=== PATIENT | male | born 1955 | race Hispanic/Latino ===

== ENCOUNTER 2017-06-13 09:07 | Inpatient (IN) | payer OTHER ==
--- NOTE | 2017-06-13 10:25 | C.PDOC ---
History Of Present Illness 62 year old male presents to ED for evaluation of intermittent right side facial pain for the past month, but worse in the past 3-4 days. He reports taking Tylenol and sinus decongestant without improvement. He states pain is in right cheek area and non-radiating. Denies headache, dizziness, vision change, mouth or dental pain, runny nose, fever, or injury to the area. Time Seen by Provider: 06/13/17 09:51 Chief Complaint (Nursing): Medical Clearance History Per: Patient History/Exam Limitations: no limitations Onset/Duration Of Symptoms: Days Current Symptoms Are (Timing): Still Present Recent travel outside of the [place]: No Additional History Per: Patient Past Medical History Reviewed: Historical Data, Nursing Documentation, Vital Signs Vital Signs: Last Vital Signs Temp 97.4 F L 06/13/17 09:19 Pulse 121 H 06/13/17 13:06 Resp 18 06/13/17 13:06 BP 127/77 06/13/17 13:06 Pulse Ox 96 06/13/17 13:06 - Medical History PMH: COPD, HTN Family History: States: Unknown Family Hx - Social History Hx Alcohol Use: No Hx Substance Use: No Review Of Systems Except As Marked, All Systems Reviewed And Found Negative. Constitutional: Negative for: Fever, Chills Eyes: Negative for: Vision Change ENT: Positive for: Other (right facial pain ). Negative for: Ear Pain, Nose Discharge, Nose Congestion, Throat Pain Cardiovascular: Negative for: Chest Pain, Palpitations Respiratory: Negative for: Cough, Shortness of Breath Neurological: Negative for: Headache, Dizziness Physical Exam - Physical Exam Appears: Non-toxic, No Acute Distress Skin: Normal Color, Warm, Dry Head: Atraumatic, Normacephalic, No Tenderness (no tenderness to right maxillary area), No Swelling (no facial swelling), No Other (no trismus) Eye(s): bilateral: Normal Inspection, PERRL, EOMI Nose: Normal, No Flaring, No Discharge Oral Mucosa: Moist Tongue: Normal Appearing Lips: Normal Appearing Teeth: Edentulous Throat: Normal Neck: Normal ROM, Supple Cardiovascular: Rhythm Regular, No Murmur Respiratory: Normal Breath Sounds, No Rales, No Rhonchi, No Wheezing Extremity: Normal ROM Neurological/Psych: Oriented x3, Normal Speech ED Course And Treatment - Laboratory Results Result Diagrams: 06/13/17 13:18 06/13/17 13:18 Lab Interpretation: Normal O2 Sat by Pulse Oximetry: 96 Pulse Ox Interpretation: Normal - CT Scan/US Right maxillofacial CT Other Rad Studies (CT/US): Read By Radiologist, Radiology Report Reviewed CT/US Interpretation: PROCEDURE: CT MAXILLOFACIAL BONES WITHOUT CONTRAST. HISTORY: right maxillary pain. COMPARISON: None. TECHNIQUE: Contiguous axial CT images of the maxillofacial bones were obtained. Coronal and sagittal reformats were generated. Radiation dose: Total exam DLP = 885.79 mGy-cm. This CT exam was performed using one or more of the following dose reduction techniques: Automated exposure control, adjustment of the mA and/or kV according to patient size, and/or use of iterative reconstruction technique. FINDINGS: NASAL BONES: Unremarkable. ORBITS: Unremarkable. PARANASAL SINUSES/ MASTOIDS: Right maxilla/maxillary sinus There is atelectasis of the right maxillary sinus with the inferior bowling of the right orbital wall there is severe osteoneogenesis and destruction of the medial wall of the right maxilla as well as medial aspect of the inferolateral wall of the right maxilla. The right inferior turbinate is resorbed. There are several discrete or ossific densities in the region of the anteromedial maxillary wall. There is severe polypoid mucosal thickening in the right maxillary sinus with aerosolized secretions. There is mild right facial soft tissue swelling and subcutaneous fat stranding with ill-defined edema in the right sharepoint consultant space. The right pterygopalatine fossa is obscured by abnormal soft tissue. The remaining paranasal sinuses are well developed and clear. MANDIBLE/ TEMPOROMANDIBULAR JOINTS: Unremarkable. SKULL BASE: Unremarkable. TEMPORAL BONES: Middle ears and mastoid grossly unremarkable. OTHER FINDINGS: There are multiple periapical abscesses in the maxillary teth. IMPRESSION: Findings are most compatible with right maxillary atelectatic sinus syndrome with concerns of acute and/or chronic chronic osteomyelitis in the right maxilla. Aerosolized secretions in the right maxillary sinus may represent superimposed acute sinusitis in the appropriate clinical setting. Multiple maxillary periapical dental abscesses. Medical Decision Making Medical Decision Making: Plan: * Maxillofacial CT * Motrin CT shows abnormal findings, see full report. Patient now states when he was younger around 12 years of age had sinus and polyp surgical removal. Consult DR Kohler. Dr Kohler evaluates patient at bedside. He wants patient admitted to medicine. Recommends ID consult. Also requesting further tests Bone scan and MRI. Speak with DR Grupo Cross who admits for Dr Dupree. 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 - Scribe Statement The provider has reviewed the documentation as recorded by the Scribe Isamar Cross All medical record entries made by the Scribe were at my direction and personally dictated by me. I have reviewed the chart and agree that the record accurately reflects my personal performance of the history, physical exam, medical decision making, and the department course for this patient. I have also personally directed, reviewed, and agree with the discharge instructions and disposition. Decision To Admit - Pt Status Changed To: Hospital Disposition Of: Inpatient - Admit Certification Admit to Inpatient:: After my assessment, the patient will require hospitalization for at least two midnights. This is because of the severity of symptoms shown, intensity of services needed, and/or the medical risk in this patient being treated as an outpatient. - InPatient: Physician Admission Certification: I certify that this patient requires 2 or more midnights of care for the following reason:: Patient with acute maxillary sinusitis and abnormal CT findings concerning for osteomyelitis. Patient will need admission and further testing. ENT consult - . Bed Request Type: Regular Admitting Physician: Kim Cross Patient Diagnosis: Sinusitis, acute maxillary, Abnormal CT scan, sinus
--- NOTE | 2017-06-13 11:37 | CT ---
PROCEDURE: CT MAXILLOFACIAL BONES WITHOUT CONTRAST HISTORY: right maxillary pain COMPARISON: None TECHNIQUE: Contiguous axial CT images of the maxillofacial bones were obtained. Coronal and sagittal reformats were generated. Radiation dose: Total exam DLP = 885.79 mGy-cm. This CT exam was performed using one or more of the following dose reduction techniques: Automated exposure control, adjustment of the mA and/or kV according to patient size, and/or use of iterative reconstruction technique. FINDINGS: NASAL BONES: Unremarkable. ORBITS: Unremarkable. PARANASAL SINUSES/ MASTOIDS: Right maxilla/maxillary sinus There is atelectasis of the right maxillary sinus with the inferior bowling of the right orbital wall there is severe osteoneogenesis and destruction of the medial wall of the right maxilla as well as medial aspect of the inferolateral wall of the right maxilla. The right inferior turbinate is resorbed. There are several discrete or ossific densities in the region of the anteromedial maxillary wall. There is severe polypoid mucosal thickening in the right maxillary sinus with aerosolized secretions. There is mild right facial soft tissue swelling and subcutaneous fat stranding with ill-defined edema in the right carbon rod inserter space. The right pterygopalatine fossa is obscured by abnormal soft tissue. The remaining paranasal sinuses are well developed and clear. MANDIBLE/ TEMPOROMANDIBULAR JOINTS: Unremarkable. SKULL BASE: Unremarkable. TEMPORAL BONES: Middle ears and mastoid grossly unremarkable. OTHER FINDINGS: There are multiple periapical abscesses in the maxillary teth. IMPRESSION: Findings are most compatible with right maxillary atelectatic sinus syndrome with concerns of acute and/or chronic chronic osteomyelitis in the right maxilla. Aerosolized secretions in the right maxillary sinus may represent superimposed acute sinusitis in the appropriate clinical setting. Multiple maxillary periapical dental abscesses.
[2017-06-13] MEDS ORDERED: cefTRIAXone IV 1 gm in Dextros 50 ML IV ONE (13:06)
[2017-06-13 13:28] LABS: BASO # 0.1 K/uL (0.0-0.2); EOS % 0.5 % (0.0-4.0); HEMATOCRIT 43.3 % (35.0-51.0); LYMPH # 2.1 K/uL (1.0-4.3); LYMPH % 27.4 % (20.0-40.0); MEAN CELL VOLUME 88.1 fL (80.0-94.0); MEAN CORPUSCULAR HEMOGLOBIN 29.6 pg (27.0-31.0); MEAN CORPUSCULAR HGB CONC 33.5 g/dL (33.0-37.0); MEAN PLATELET VOLUME 8.9 fL (7.2-11.7); MONO # 0.4 K/uL (0.0-0.8); MONO % 5.5 % (0.0-10.0); NRBC % 0.1 % (0.0-2.0); RED CELL DISTRIBUTION WIDTH 15.4 % (11.5-14.5); WHITE BLOOD COUNT 7.8 K/uL (4.8-10.8)
[2017-06-13 13:37] LABS: INR 1.3
[2017-06-13 13:42] LABS: ALB/GLOB RATIO 1.1 (1.0-2.1); ALKALINE PHOSPHATASE 88 U/L (38-126); ALT/SGPT 57 U/L (21-72); AST/SGOT 63 U/L (17-59); BILIRUBIN,TOTAL 0.6 mg/dL (0.2-1.3); BLOOD UREA NITROGEN 13 mg/dL (9-20); CALCIUM 8.5 mg/dl (8.6-10.4); CARBON DIOXIDE 25 mmol/L (22-30); CHLORIDE 101 mmol/L (98-107); GFR AFRICAN-AMERICAN > 60; GLUCOSE,RANDOM 122 mg/dL (75-110); POTASSIUM 3.9 mmol/L (3.6-5.2); SODIUM 140 mmol/L (132-148); TOTAL PROTEIN 7.2 g/dL (6.3-8.3)
[2017-06-13 15:22] LABS: ABG ALLEN TEST PO; DRAW SITE RRA
[2017-06-13] MEDS ORDERED: Oxycodone/Acetaminophen 5/325 mg Tab PO ONE (15:31)
--- NOTE | 2017-06-13 15:35 | PCM.RRT ---
Addendum entered and electronically signed by Zahida Zapata DO 06/13/17 15:39: venous congestion and left sided pleural thickening/fluid f/u ddimer f/u ctangio chest IV lasix 40mg IVP once Original Note: <Zahida Zapata - Last Filed: 06/13/17 15:33> GOLD STAMPER Nurses Assessment - Situation Date: 06/13/17 GOLD STAMPER Location:: Med/Oncology GOLD STAMPER Reason for Call: Tachycardia GOLD STAMPER Called By: RN - IV IV Inserted during GOLD STAMPER?: No - Respiratory GOLD STAMPER Delivery Method: Nasal Cannula @L/min Received Nebulizer Treatments: No Was the Patient Ventilated with Bag/Mask 100% O2?: No Secretions Suctioned?: No Was the Patient Intubated?: No Was the Patient Placed on a Ventilator?: No - Diagnostic Test Ordered EKG: Yes Chest X-Ray: Yes CT Scan: Yes (ctangiogram) - Stat Labs Ordered GOLD STAMPER Stat Labs Ordered: TROPONIN, LACTIC ACID, ABG CPR started during GOLD STAMPER?: No - [place] Coma Scale Coma Scale Eye Opening: Spontaneous Coma Scale Motor: Obeys Commands Movement Coma Scale Verbal: Oriented Coma Scale Total: 15 - Vital Signs at end of GOLD STAMPER Vital Signs at end of GOLD STAMPER: hr 122 bp 155 systolic please see vitals recorded in vital signs - Recommendations 5) GOLD STAMPER Level of Care Recommendations: Transfer to Telemetry - Neurological Status (Select all that apply): Alert - Respiratory Oxygen Delivery Method: Nasal Cannula @L/min - Head Head Exam: ATRAUMATIC, NORMAL INSPECTION, NORMOCEPHALIC - Eyes Eye Exam: EOMI, Normal appearance - Respiratory Exam Respiratory Exam: Decreased Breath Sounds, NORMAL BREATHING PATTERN - Cardiovascular Exam Cardiovascular Exam: Tachycardia, REGULAR RHYTHM, +S1, +S2 - GI/Abdominal Exam GI & Abdominal Exam: Soft. absent: Tenderness - Neurological Exam Neurological Exam: Alert, Awake, Oriented x3 - Extremities Exam Extremities Exam: Full ROM, Pedal Edema (1+ pitting edema) Plan - Assessment of Findings&Treatment Plan f/u TSH, free t4 f/u [place] panel ABG shock seen lactate 0.8 f/u blood culture f/u urine culture f/u UA CXR done, cardiomegaly, some pleural effusion <Zoila Del Rio V - Last Filed: 06/14/17 00:24> GOLD STAMPER Nurses Assessment - Vital Signs Vital Signs: Rapid Response Vital Sign Blood Pressure 155/90 Pulse Rate 125 Respiratory Rate 21 Temperature 98 F Oxygen Saturation 95 - Vital Signs at end of GOLD STAMPER Vital Signs at end of GOLD STAMPER: Rapid Response End Vital Sign Blood Pressure 156/102 Pulse Rate 124 Respiratory Rate 21 Temperature 97.7 F O2 Sat by Pulse Oximetry 96 Attending/Attestation - Attestation I have personally seen and examined this patient.: Yes I have fully participated in the care of the patient.: Yes I have reviewed all pertinent clinical information, including history, physical exam and plan: Yes Notes (Text): Brief Hospitalist Note Responded to GOLD STAMPER for tachycardia. Patient recently came up from the ED for sinusitis when arrived to the 3rd floor which is a med/surgery floor. Patient's H&P not available at the time of my exam. Nurse called GOLD STAMPER for HR: 120s. This is the history I elicited from the patient. patient is a 62 year old Male PMHX: COPD (not on home oxygen, has not seen a seam sewer, smoker: 1/2 pack a day for multiple years), CHF (prior hx of exacerbation), prior history of pneumonia who comes in for right sided maxillary facial pain, which prompted him to come to the emergency room. Patient reports he spends most of the time in bed 5-6 hours and sometimes go to the grocery store. Patient reports he feels short of breathe and can one block before his breathing bother gilmer. Patient denies fever, afebrile in the emergency room, reports unproductive cough, reports SHINE, denies chest pain, denies palpitations, denies abdominal pain, reports abdominal girth has not changed, denies nausea, denies vomitting, and reports hesistancy, dribbling of urine, but as he reports if he drinks lots of water he will urine. PMD: Abuvicar Medications: patient cannot remember the name of his medications: reports takes anti-hypertensives 3x a day Allergies; NKDA, he reports he does not like fish, but has tolerate tuna Social Hx: +smoking, has cut to half pack a day for multiple years Family Hx: mother has triple bypass surgery. Given patient's asymptomatic tachycardia-->patient ordered for EKG which shows sinus tachycardia. Ordered for CARY, TSH, D-dimer, and proBNP given his cardiac hx. Patient is afebrile but appears to be fighting off sinusitis. Patient is not anemic per ED bloodwork on admission. Ordered for ABG given his COPD hx and check lactate to see if patient warrants code sepsis, which does not. lactate acid is normal. Blood and urine cultures ordered. Nursing attempted to put in urinary catheter at bedside however noted by nursing there is much resistance and patient screaming in pain. I suspected possible BPH but patient has never been told he has prostate problems. Patient order for portable chest xray since not collected in ED and given history and tachycardia, want to rule out pneumothorax and see if pneumonia is present. Patient ordered for Ct angio stat since given risk factor: morbid obesity, sedentary, and active smoker and tachycardia to rule out PE since d-dimer is collected during the rapid respone. Patient given dose of LAsix 40mg IV X1, and Percocet 1 tab PO X1 for pain. Patient has remained asymptomatic entire time of rapid. Patient's bed transferred to telemetry given consideration of his COPD, CHF, possible pneumonia, and fighting off infection associated osteomyelitis. Discussed with Dr Grupo Cross, following resolution of rapid given patient's extensive medical hx, recommends pulm consult (Dr. Francisco), infectious disease ( Dr. Noah Almendarez), and cardiology (Dr. Carson).
--- NOTE | 2017-06-13 15:37 | RAD ---
HISTORY: sob COMPARISON: Chest x-ray performed 10/01/12 TECHNIQUE: Chest, one view. FINDINGS: Tubing projects over the left upper chest obscuring evaluation of the underlying parenchyma. Examination markedly limited by habitus. LUNGS: Pulmonary venous congestion. No focal consolidation. Please note that chest x-ray has limited sensitivity for the detection of pulmonary masses. PLEURA: Mild right lateral pleural thickening/fluid. No definite pneumothorax . CARDIOVASCULAR: Marked cardiomegaly. Atherosclerotic calcifications of the aorta. OSSEOUS STRUCTURES: Degenerative changes. VISUALIZED UPPER ABDOMEN: Unremarkable. OTHER FINDINGS: None. IMPRESSION: Marked cardiomegaly. Pulmonary venous congestion. Mild lateral right pleural thickening/fluid.
[2017-06-13] MEDS ORDERED: Piperacillin/Tazobact 3.375 GM in Sodium Chloride 100 ML IVPB SCH (16:00)
[2017-06-13 16:23] LABS: THYROID STIMULATING HORMONE 0.39 mIU/L (0.46-4.68)
[2017-06-13] MEDS: Enoxaparin 40 mg Syringe SC SCH (16:27)
[2017-06-13] MEDS ORDERED: Iodixanol 320 MG/ML 100 ML BOTTLE IV ONE (17:28)
[2017-06-13] MEDS ORDERED: Piperacill/Tazo 3.375gm in Dex 3.375 GM/50 ML BAG IVPB SCH (18:00)
[2017-06-13 18:34] LABS: RBC URINE 1 /hpf (0-3); URINE BACTERIA RARE (<OCC); URINE BILIRUBIN NEGATIVE (NEGATIVE); URINE BLOOD NEGATIVE (NEGATIVE); URINE COLOR Yellow (YELLOW); URINE GLUCOSE (UA) NORMAL (Normal); URINE KETONE TRACE mg/dL (NEGATIVE); URINE LEUKOCYTE ESTERASE NEG Leu/uL (Negative); URINE PROTEIN NEGATIVE (NEGATIVE); URINE UROBILINOGEN NORMAL mg/dL (0.2-1.0); WBC URINE 4 /hpf (0-5)
--- NOTE | 2017-06-13 18:58 | CT ---
PROCEDURE: CT Chest with contrast (Pulmonary Angiogram) HISTORY: sob tachypnea tachycardia COMPARISON: None available. TECHNIQUE: Axial computed tomography images were obtained of the chest in the pulmonary arterial phase of enhancement. Coronal and sagittal reformatted images were created and reviewed. Intravenous contrast dose: 100 cc Visipaque 320 contrast material Radiation dose: Total exam DLP = 681.46 mGy-cm. This CT exam was performed using one or more of the following dose reduction techniques: Automated exposure control, adjustment of the mA and/or kV according to patient size, and/or use of iterative reconstruction technique. FINDINGS: PULMONARY ARTERIES: The visualized portions of the pulmonary trunk, right and left main, lobar segmental and proximal subsegmental branches of the pulmonary arteries are well opacified with no definitive filling defects seen to suggest acute pulmonary embolus. Pulmonary trunk measures approximately 2.6 cm. AORTA: No evidence of thoracic aortic aneurysm. Ascending thoracic aorta measures approximately 3.1 cm and descending thoracic aorta measures approximately 2.5 cm. LUNGS: There are vague patchy ground-glass opacities seen throughout the upper and lower lobes. Rule out air trapping. In addition, there appears to be some chronic atelectasis/ scarring in the right lung base, right middle lobe left anterior lung base -lingular regions. . Additionally, there are several tiny granulomata seen in the right middle lobe, right and posterior lung bases and in the lingular region as well. Findings consistent with prior exposure to a granulomatous disease process. Lung lim are otherwise clear without focal consolidation or effusion. Minor thickening of the posterior superior margin of the right major fissure. PLEURAL SPACES: Unremarkable. No effusion or pneumothorax. HEART: Heart size is within range of normal. No evidence of significant pericardial effusion. LYMPH NODES: No significant mediastinal or hilar adenopathy. . Central airways are midline and patent. No central endoluminal lesions. There is tiny hiatal hernia with slight wall thickening of the distal esophagus likely due to protrusion of gastric mucosa. Esophagitis not excluded. BONES, CHEST WALL: Minor chronic appearing anterior stature loss of few mid thoracic segments. OTHER FINDINGS: Apparent substernal thyroid right lobe of which is slightly larger than the left. Nonemergent thyroid ultrasound followup should be performed to confirm. IMPRESSION: No evidence of acute central pulmonary embolus. Chronic atelectasis/ scarring changes in the both lung bases middle lobe and lingular regions. Additionally, there are a few scattered tiny calcified granulomata consistent with prior exposure to granulomatous disease process. Patchy ground-glass opacities seen throughout the upper and lower lobes; rule out mild air trapping. Probable substernal thyroid. Thyroid ultrasound followup recommended to confirm.
--- NOTE | 2017-06-13 19:06 | CP.PCM.CON ---
History of Present Illness - History of Present Illness History of Present Illness: INFECTIOUS DISEASE CONSULT; HPI; 62 year old male presents to ED today for evaluation of intermittent right side facial pain for the past month, but worse in the past 3-4 days. He reports taking Tylenol and sinus decongestant without improvement. He states pain is in right cheek area and non-radiating. Denies headache, dizziness, vision change, mouth or dental pain, runny nose, fever, or injury to the area. Patient does complain of hearing loss AND FULLNESS BOTH EARS SPECIALLY RIGHT PATIENT UNDERWENT MAXILLOFACIAL CT WHICH SHOWED RIGHT MAXILLARY SINUS ATELECTASIS WITH SEVERE OSTEONECROSIS AND DESTRUCTION OF MEDIAL BORDER OF THE RIGHT MAXILLARY AND INFEROLATERAL WALL OFF RIGHT MAXILLA. MILD SOFT TISSUE SWELLING AND STRANDING WITH ILL-DEFINED EDEMA RIGHT MASTOID SPACE.? ACUTE ON CHRONIC OSTEOMYELITIS RIGHT MAXILLA. MULTIPLE MAXILLARY PERIAPICAL DENTAL ABSCESSES SEEN. PATIENT DOES STATE HE HAS POOR ORAL HYGIENE AND HAS NOT BEEN TO THE DENTIST FOR SOME TIME. MANY OF HIS TEETH HAVE FALLEN. PATIENT STATUS POST RAPID RESPONSE TODAY AND EVENTS NOTED. PATIENT PRESENTLY BEING TRANSFERRED TO THE TELEMETRY BED. CHEST X-RAY ON ADMISSION WAS UNREMARKABLE WITH SOME PERIPHERAL VASCULAR CONGESTION. INFECTIOUS DISEASE CONSULTATION REQUESTED BY DR Grupo SORIA FOR RIGHT MAXILLARY SINUSITIS ? ACUTE ON CHRONIC OSTEOMYELITIS RIGHT MAXILLA AND MULTIPLE MAXILLARY PERIAPICAL DENTAL ABSCESSES. PMH: COPD, HTN. DENIES HISTORY OF DIABETES MELLITUS. Family History: States: Unknown Family Hx - Social History Hx Alcohol Use: No Hx Substance Use: No SMOKING-USED TO SMOKE HEAVILY BUT HAS NOW CUT DOWN TO ONE PACK PER MONTH. MEDS; REVIEWED. PATIENT GOT ONE DOSE OF CEFTRIAXONE 1 G IN THE ER AND STARTED ON ZOSYN 3.375 iv EVERY 6 HOURLY. ALLERGY; NKA Review of Systems - Constitutional Constitutional: absent: Fever - EENT Eyes: absent: Change in Vision, Photophobia, Other Visual Disturbances Nose/Mouth/Throat: Nasal Congestion, Sinus Pain, Sinus Pressure, Dental Pain, Facial Pain. absent: Post Nasal Drip, Hoarsness, Sore Throat - Cardiovascular Cardiovascular: Dyspnea on Exertion. absent: Chest Pain - Respiratory Respiratory: Cough, Dyspnea, Change in Mucous Color - Gastrointestinal Gastrointestinal: absent: Abdominal Pain, Diarrhea, Vomiting - Genitourinary Genitourinary: Difficulty Urinating, Flank Pain (RIGHT FLANK PAIN.), Pyuria. absent: Urinary Hesitance - Integumentary Integumentary: As Per HPI, Dry Skin, Striae (ANTERIOR ABDOMINAL WALL.) - Neurological Neurological: Abnormal Hearing. absent: Dizziness, Headaches, Sensory Deficit, Other Visual Disturbances - Hematologic/Lymphatic Hematologic: As Per HPI. absent: Easy Bruising, Lymphadenopathy Past Patient History - Past Medical History & Family History Past Medical History?: Yes - Past Social History Smoking Status: Light Smoker < 10 Cigarettes Daily - CARDIAC Hx Congestive Heart Failure: Yes (since 2009) Hx Hypertension: Yes - PULMONARY Hx Chronic Obstructive Pulmonary Disease (COPD): Yes Hx Pneumonia: Yes (in 2009) - MUSCULOSKELETAL/RHEUMATOLOGICAL Hx Falls: No - PSYCHIATRIC Hx Substance Use: No - ANESTHESIA Hx Anesthesia: No Meds Allergies/Adverse Reactions: Allergies Allergy/AdvReac Type Severity Reaction Status Date / Time No Known Allergies Allergy Unverified 06/13/17 09:20 - Medications Medications: Current Medications Enoxaparin Sodium (Lovenox) 40 mg SC DAILY [facility] Last Admin: 06/13/17 16:27 Dose: 40 mg Furosemide (Lasix) 40 mg IVP DAILY [facility] Piperacillin Sod/Tazobactam Sod (Zosyn 3.375 Gm Iv Premix) 3.375 gm in 50 mls @ 100 mls/hr IVPB Q6 [facility] Last Admin: 06/13/17 18:57 Dose: 100 mls/hr Losartan Potassium (Cozaar) 50 mg PO DAILY [facility] Last Admin: 06/13/17 16:28 Dose: 50 mg Oxycodone/Acetaminophen (Percocet 5/325 Mg Tab) 1 tab PO Q6H PRN PRN Reason: Pain, severe (8-10) Stop: 06/16/17 16:06 Pantoprazole Sodium (Protonix Inj) 40 mg IVP DAILY [facility] Last Admin: 06/13/17 16:27 Dose: 40 mg Pneumococcal Polyvalent Vaccine (Pneumovax 23 Vaccine) 0.5 ml IM .ONCE ONE Stop: 06/15/17 10:01 Physical Exam - Constitutional Appears: No Acute Distress, Older Than Stated Age - Head Exam Head Exam: NORMAL INSPECTION - Eye Exam Eye Exam: EOMI, PERRL - ENT Exam ENT Exam: Mucous Membranes Moist, Normal Oropharynx (POOR ORAL HYGIENE. MULTIPLE TEETH MISSING.) - Neck Exam Neck exam: Positive for: Normal Inspection. Negative for: Meningismus - Respiratory Exam Respiratory Exam: Clear to Auscultation Bilateral - Cardiovascular Exam Cardiovascular Exam: Tachycardia, REGULAR RHYTHM, +S1, +S2 - GI/Abdominal Exam GI & Abdominal Exam: Normal Bowel Sounds, Soft. absent: Organomegaly - Extremities Exam Extremities exam: Positive for: pedal edema, pedal pulses present. Negative for : calf tenderness - Neurological Exam Neurological exam: Alert, CN II-XII Intact, Oriented x3, Reflexes Normal - Psychiatric Exam Psychiatric exam: Normal Mood - Skin Skin Exam: Normal Color, Warm Results - Vital Signs Recent Vital Signs: Last Vital Signs Temp 98.6 F 06/13/17 16:00 Pulse 125 H 06/13/17 18:01 Resp 21 06/13/17 18:01 BP 150/87 06/13/17 16:00 Pulse Ox 97 06/13/17 16:00 - Labs Result Diagrams: 06/13/17 13:18 06/13/17 13:18 Labs: Laboratory Results - last 24 hr 06/13/17 06/13/17 06/13/17 13:18 13:18 13:18 WBC 7.8 RBC 4.92 Hgb 14.5 Hct 43.3 MCV 88.1 MCH 29.6 MCHC 33.5 RDW 15.4 H Plt Count 327 MPV 8.9 Neut % (Auto) 65.6 Lymph % (Auto) 27.4 [place] % (Auto) 5.5 Eos % (Auto) 0.5 Baso % (Auto) 1.0 Neut # 5.1 Lymph # 2.1 [place] # 0.4 Eos # 0.0 Baso # 0.1 PT 15.2 H INR 1.3 APTT 35 H D-Dimer, Quantitative Puncture Site pCO2 pO2 HCO3 ABG pH ABG Total CO2 ABG O2 Saturation ABG Base Excess Leoncio Test ABG Potassium A-a O2 Difference Respiratory Index Glucose Lactate Liter Flow FiO2 Sodium 140 Potassium 3.9 Chloride 101 Carbon Dioxide 25 Anion Gap 17 BUN 13 Creatinine 0.8 Est GFR ( Amer) > 60 Est GFR (Non-Af Amer) > 60 POC Glucose (mg/dL) Random Glucose 122 H Calcium 8.5 L Total Bilirubin 0.6 AST 63 H ALT 57 Alkaline Phosphatase 88 Total Creatine Kinase CK-MB (Mass) Troponin I NT-Pro-B Natriuret Pep 407 Total Protein 7.2 Albumin 3.8 Globulin 3.5 Albumin/Globulin Ratio 1.1 Free T4 TSH 3rd Generation Arterial Blood Potassium Urine Color Urine Clarity Urine pH Ur Specific [place] Urine Protein Urine Glucose (UA) Urine Ketones Urine Blood Urine Nitrate Urine Bilirubin Urine Urobilinogen Ur Leukocyte Esterase Urine WBC (Auto) Urine RBC (Auto) Urine Bacteria 06/13/17 06/13/17 06/13/17 14:56 15:20 15:29 WBC RBC Hgb Hct MCV MCH MCHC RDW Plt Count MPV Neut % (Auto) Lymph % (Auto) [place] % (Auto) Eos % (Auto) Baso % (Auto) Neut # Lymph # [place] # Eos # Baso # PT INR APTT D-Dimer, Quantitative Puncture Site Rra pCO2 37 pO2 96 HCO3 24.3 ABG pH 7.41 ABG Total CO2 24.6 ABG O2 Saturation 98.1 H ABG Base Excess -0.8 Leoncio Test Po ABG Potassium 3.5 L A-a O2 Difference 57.0 Respiratory Index 0.6 Glucose 94 Lactate 0.8 Liter Flow 2.0 FiO2 28.0 Sodium 136.0 Potassium Chloride 105.0 Carbon Dioxide Anion Gap BUN Creatinine Est GFR ( Amer) Est GFR (Non-Af Amer) POC Glucose (mg/dL) 94 Random Glucose Calcium Total Bilirubin AST ALT Alkaline Phosphatase Total Creatine Kinase CK-MB (Mass) Troponin I NT-Pro-B Natriuret Pep Total Protein Albumin Globulin Albumin/Globulin Ratio Free T4 2.85 H TSH 3rd Generation Arterial Blood Potassium 3.5 L Urine Color Urine Clarity Urine pH Ur Specific [place] Urine Protein Urine Glucose (UA) Urine Ketones Urine Blood Urine Nitrate Urine Bilirubin Urine Urobilinogen Ur Leukocyte Esterase Urine WBC (Auto) Urine RBC (Auto) Urine Bacteria 06/13/17 06/13/17 06/13/17 15:29 15:29 16:56 WBC RBC Hgb Hct MCV MCH MCHC RDW Plt Count MPV Neut % (Auto) Lymph % (Auto) [place] % (Auto) Eos % (Auto) Baso % (Auto) Neut # Lymph # [place] # Eos # Baso # PT INR APTT D-Dimer, Quantitative < 200 Puncture Site pCO2 pO2 HCO3 ABG pH ABG Total CO2 ABG O2 Saturation ABG Base Excess Leoncio Test ABG Potassium A-a O2 Difference Respiratory Index Glucose Lactate Liter Flow FiO2 Sodium Potassium Chloride Carbon Dioxide Anion Gap BUN Creatinine Est GFR ( Amer) Est GFR (Non-Af Amer) POC Glucose (mg/dL) Random Glucose Calcium Total Bilirubin AST ALT Alkaline Phosphatase Total Creatine Kinase 122 CK-MB (Mass) 3.36 Troponin I < 0.0120 NT-Pro-B Natriuret Pep 376 Total Protein Albumin Globulin Albumin/Globulin Ratio Free T4 TSH 3rd Generation 0.39 L Arterial Blood Potassium Urine Color Urine Clarity Urine pH Ur Specific [place] Urine Protein Urine Glucose (UA) Urine Ketones Urine Blood Urine Nitrate Urine Bilirubin Urine Urobilinogen Ur Leukocyte Esterase Urine WBC (Auto) Urine RBC (Auto) Urine Bacteria 06/13/17 18:17 WBC RBC Hgb Hct MCV MCH MCHC RDW Plt Count MPV Neut % (Auto) Lymph % (Auto) [place] % (Auto) Eos % (Auto) Baso % (Auto) Neut # Lymph # [place] # Eos # Baso # PT INR APTT D-Dimer, Quantitative Puncture Site pCO2 pO2 HCO3 ABG pH ABG Total CO2 ABG O2 Saturation ABG Base Excess Leoncio Test ABG Potassium A-a O2 Difference Respiratory Index Glucose Lactate Liter Flow FiO2 Sodium Potassium Chloride Carbon Dioxide Anion Gap BUN Creatinine Est GFR ( Amer) Est GFR (Non-Af Amer) POC Glucose (mg/dL) Random Glucose Calcium Total Bilirubin AST ALT Alkaline Phosphatase Total Creatine Kinase CK-MB (Mass) Troponin I NT-Pro-B Natriuret Pep Total Protein Albumin Globulin Albumin/Globulin Ratio Free T4 TSH 3rd Generation Arterial Blood Potassium Urine Color Yellow Urine Clarity Clear Urine pH 5.0 Ur Specific [place] 1.026 Urine Protein Negative Urine Glucose (UA) Normal Urine Ketones Trace Urine Blood Negative Urine Nitrate Negative Urine Bilirubin Negative Urine Urobilinogen Normal Ur Leukocyte Esterase Neg Urine WBC (Auto) 4 Urine RBC (Auto) 1 Urine Bacteria Rare - Imaging and Cardiology Chest x-ray Status: Report reviewed by me (pvc. nO CONSOLIDATION.) Assessment & Plan (1) Sinusitis, acute maxillary Assessment and Plan: PANCULTURES ESR,CRP. MRSA SCREEN. THROAT CULTURE. PATIENT GOT ONE DOSE OF CEFTRIAXONE IN THE ER. INCREASE iv ZOSYN 4.5 G EVERY 8 HOURLY .06/13/17. START iv VANCOMYCIN 1 G EVERY 12 HOURLY FOR STAPH AND MRSA COVERAGE.06/13/17 START iv CLEOCIN 600 MG iv PIGGYBACK EVERY 6 HOURLY 06/13/17. F/U VANCO TROUGH LEVEL PRIOR TO FOURTH DOSE AND MAINTAIN BETWEEN 10 AND 20. ENT EVALUATION PER PMD WAS OSTEONECROSIS AND ACUTE ON CHRONIC OSTEOMYELITIS RIGHT MAXILLA. Status: Acute (2) Abnormal CT scan, sinus Assessment and Plan: MAXILLOFACIAL CT SCAN - SEE FULL REPORT. Status: Acute (3) Dental abscess Assessment and Plan: MAXILLOFACIAL SURGICAL CONSULT FOR MULTIPLE DENTAL ABSCESSES. Status: Acute (4) Hypertension Assessment and Plan: S/P RRR TODAY . CARDIOLOGY ON BOARD. 2D ECHO R/O VEGETATIONS. Status: Acute (5) Chronic obstructive lung disease Status: Acute
--- NOTE | 2017-06-13 19:38 | CP.PCM.HP ---
Past Patient History - Past Medical History & Family History Past Medical History?: Yes - Past Social History Smoking Status: Light Smoker < 10 Cigarettes Daily - CARDIAC Hx Congestive Heart Failure: Yes (since 2009) Hx Hypertension: Yes - PULMONARY Hx Chronic Obstructive Pulmonary Disease (COPD): Yes Hx Pneumonia: Yes (in 2009) - MUSCULOSKELETAL/RHEUMATOLOGICAL Hx Falls: No - PSYCHIATRIC Hx Substance Use: No - ANESTHESIA Hx Anesthesia: No Meds Allergies/Adverse Reactions: Allergies Allergy/AdvReac Type Severity Reaction Status Date / Time No Known Allergies Allergy Unverified 06/13/17 09:20 Physical Exam - Constitutional Appears: Well - Head Exam Head Exam: ATRAUMATIC, NORMAL INSPECTION, NORMOCEPHALIC - Eye Exam Eye Exam: EOMI, Normal appearance, PERRL Pupil Exam: NORMAL ACCOMODATION, PERRL - ENT Exam ENT Exam: Mucous Membranes Moist, Normal Exam - Neck Exam Neck exam: Positive for: Normal Inspection - Respiratory Exam Respiratory Exam: Decreased Breath Sounds - Cardiovascular Exam Cardiovascular Exam: REGULAR RHYTHM, +S1, +S2 - GI/Abdominal Exam GI & Abdominal Exam: Diminished Bowel Sounds, Soft - Rectal Exam Rectal Exam: Deferred Results - Vital Signs Recent Vital Signs: Last Vital Signs Temp 98.6 F 06/13/17 16:00 Pulse 125 H 06/13/17 18:01 Resp 21 06/13/17 18:01 BP 150/87 06/13/17 16:00 Pulse Ox 97 06/13/17 16:00 - Labs Result Diagrams: 06/13/17 13:18 06/13/17 13:18 Labs: Laboratory Results - last 24 hr 06/13/17 06/13/17 06/13/17 13:18 13:18 13:18 WBC 7.8 RBC 4.92 Hgb 14.5 Hct 43.3 MCV 88.1 MCH 29.6 MCHC 33.5 RDW 15.4 H Plt Count 327 MPV 8.9 Neut % (Auto) 65.6 Lymph % (Auto) 27.4 [place] % (Auto) 5.5 Eos % (Auto) 0.5 Baso % (Auto) 1.0 Neut # 5.1 Lymph # 2.1 [place] # 0.4 Eos # 0.0 Baso # 0.1 PT 15.2 H INR 1.3 APTT 35 H D-Dimer, Quantitative Puncture Site pCO2 pO2 HCO3 ABG pH ABG Total CO2 ABG O2 Saturation ABG Base Excess Leoncio Test ABG Potassium A-a O2 Difference Respiratory Index Glucose Lactate Liter Flow FiO2 Sodium 140 Potassium 3.9 Chloride 101 Carbon Dioxide 25 Anion Gap 17 BUN 13 Creatinine 0.8 Est GFR ( Amer) > 60 Est GFR (Non-Af Amer) > 60 POC Glucose (mg/dL) Random Glucose 122 H Calcium 8.5 L Total Bilirubin 0.6 AST 63 H ALT 57 Alkaline Phosphatase 88 Total Creatine Kinase CK-MB (Mass) Troponin I NT-Pro-B Natriuret Pep 407 Total Protein 7.2 Albumin 3.8 Globulin 3.5 Albumin/Globulin Ratio 1.1 Free T4 TSH 3rd Generation Arterial Blood Potassium Urine Color Urine Clarity Urine pH Ur Specific [place] Urine Protein Urine Glucose (UA) Urine Ketones Urine Blood Urine Nitrate Urine Bilirubin Urine Urobilinogen Ur Leukocyte Esterase Urine WBC (Auto) Urine RBC (Auto) Urine Bacteria 06/13/17 06/13/17 06/13/17 14:56 15:20 15:29 WBC RBC Hgb Hct MCV MCH MCHC RDW Plt Count MPV Neut % (Auto) Lymph % (Auto) [place] % (Auto) Eos % (Auto) Baso % (Auto) Neut # Lymph # [place] # Eos # Baso # PT INR APTT D-Dimer, Quantitative Puncture Site Rra pCO2 37 pO2 96 HCO3 24.3 ABG pH 7.41 ABG Total CO2 24.6 ABG O2 Saturation 98.1 H ABG Base Excess -0.8 Leoncio Test Po ABG Potassium 3.5 L A-a O2 Difference 57.0 Respiratory Index 0.6 Glucose 94 Lactate 0.8 Liter Flow 2.0 FiO2 28.0 Sodium 136.0 Potassium Chloride 105.0 Carbon Dioxide Anion Gap BUN Creatinine Est GFR ( Amer) Est GFR (Non-Af Amer) POC Glucose (mg/dL) 94 Random Glucose Calcium Total Bilirubin AST ALT Alkaline Phosphatase Total Creatine Kinase CK-MB (Mass) Troponin I NT-Pro-B Natriuret Pep Total Protein Albumin Globulin Albumin/Globulin Ratio Free T4 2.85 H TSH 3rd Generation Arterial Blood Potassium 3.5 L Urine Color Urine Clarity Urine pH Ur Specific [place] Urine Protein Urine Glucose (UA) Urine Ketones Urine Blood Urine Nitrate Urine Bilirubin Urine Urobilinogen Ur Leukocyte Esterase Urine WBC (Auto) Urine RBC (Auto) Urine Bacteria 06/13/17 06/13/17 06/13/17 15:29 15:29 16:56 WBC RBC Hgb Hct MCV MCH MCHC RDW Plt Count MPV Neut % (Auto) Lymph % (Auto) [place] % (Auto) Eos % (Auto) Baso % (Auto) Neut # Lymph # [place] # Eos # Baso # PT INR APTT D-Dimer, Quantitative < 200 Puncture Site pCO2 pO2 HCO3 ABG pH ABG Total CO2 ABG O2 Saturation ABG Base Excess Leoncio Test ABG Potassium A-a O2 Difference Respiratory Index Glucose Lactate Liter Flow FiO2 Sodium Potassium Chloride Carbon Dioxide Anion Gap BUN Creatinine Est GFR ( Amer) Est GFR (Non-Af Amer) POC Glucose (mg/dL) Random Glucose Calcium Total Bilirubin AST ALT Alkaline Phosphatase Total Creatine Kinase 122 CK-MB (Mass) 3.36 Troponin I < 0.0120 NT-Pro-B Natriuret Pep 376 Total Protein Albumin Globulin Albumin/Globulin Ratio Free T4 TSH 3rd Generation 0.39 L Arterial Blood Potassium Urine Color Urine Clarity Urine pH Ur Specific [place] Urine Protein Urine Glucose (UA) Urine Ketones Urine Blood Urine Nitrate Urine Bilirubin Urine Urobilinogen Ur Leukocyte Esterase Urine WBC (Auto) Urine RBC (Auto) Urine Bacteria 06/13/17 18:17 WBC RBC Hgb Hct MCV MCH MCHC RDW Plt Count MPV Neut % (Auto) Lymph % (Auto) [place] % (Auto) Eos % (Auto) Baso % (Auto) Neut # Lymph # [place] # Eos # Baso # PT INR APTT D-Dimer, Quantitative Puncture Site pCO2 pO2 HCO3 ABG pH ABG Total CO2 ABG O2 Saturation ABG Base Excess Leoncio Test ABG Potassium A-a O2 Difference Respiratory Index Glucose Lactate Liter Flow FiO2 Sodium Potassium Chloride Carbon Dioxide Anion Gap BUN Creatinine Est GFR ( Amer) Est GFR (Non-Af Amer) POC Glucose (mg/dL) Random Glucose Calcium Total Bilirubin AST ALT Alkaline Phosphatase Total Creatine Kinase CK-MB (Mass) Troponin I NT-Pro-B Natriuret Pep Total Protein Albumin Globulin Albumin/Globulin Ratio Free T4 TSH 3rd Generation Arterial Blood Potassium Urine Color Yellow Urine Clarity Clear Urine pH 5.0 Ur Specific [place] 1.026 Urine Protein Negative Urine Glucose (UA) Normal Urine Ketones Trace Urine Blood Negative Urine Nitrate Negative Urine Bilirubin Negative Urine Urobilinogen Normal Ur Leukocyte Esterase Neg Urine WBC (Auto) 4 Urine RBC (Auto) 1 Urine Bacteria Rare
[2017-06-13] MEDS: Vancomycin 1 gm/NS 200 ml 1 GM/200 ML BAG IVPB SCH (19:45)
[2017-06-13] MEDS: Clindamycin 600mg/50ml NS 600 MG/50 ML BAG IVPB SCH (19:46)
--- NOTE | 2017-06-13 19:46 | CP.PCM.CON ---
History of Present Illness - History of Present Illness History of Present Illness: 62 M with no significant PMH admitted for sinusitis Cardiology consulted for Tachycardia Past Patient History - Past Medical History & Family History Past Medical History?: Yes - Past Social History Smoking Status: Light Smoker < 10 Cigarettes Daily - CARDIAC Hx Congestive Heart Failure: Yes (since 2009) Hx Hypertension: Yes - PULMONARY Hx Chronic Obstructive Pulmonary Disease (COPD): Yes Hx Pneumonia: Yes (in 2009) - MUSCULOSKELETAL/RHEUMATOLOGICAL Hx Falls: No - PSYCHIATRIC Hx Substance Use: No - ANESTHESIA Hx Anesthesia: No Meds Allergies/Adverse Reactions: Allergies Allergy/AdvReac Type Severity Reaction Status Date / Time No Known Allergies Allergy Unverified 06/13/17 09:20 - Medications Medications: Current Medications Enoxaparin Sodium (Lovenox) 40 mg SC DAILY [facility] Last Admin: 06/13/17 16:27 Dose: 40 mg Furosemide (Lasix) 40 mg IVP DAILY [facility] Vancomycin/Sodium Chloride (Vancomycin 1 Gm/Ns 200 Ml) 1 gm in 200 mls @ 133 mls/hr IVPB Q12H [facility] Stop: 06/18/17 20:01 Clindamycin Phosphate (Cleocin In Normal Saline) 600 mg in 50 mls @ 100 mls/hr IVPB Q6H [facility] Piperacillin Sod/Tazobactam Sod (Zosyn 4.5 Gm Iv Premix) 4.5 gm in 100 mls @ 100 mls/hr IVPB Q8H [facility] Losartan Potassium (Cozaar) 50 mg PO DAILY [facility] Last Admin: 06/13/17 16:28 Dose: 50 mg Oxycodone/Acetaminophen (Percocet 5/325 Mg Tab) 1 tab PO Q6H PRN PRN Reason: Pain, severe (8-10) Stop: 06/16/17 16:06 Pantoprazole Sodium (Protonix Inj) 40 mg IVP DAILY [facility] Last Admin: 06/13/17 16:27 Dose: 40 mg Pneumococcal Polyvalent Vaccine (Pneumovax 23 Vaccine) 0.5 ml IM .ONCE ONE Stop: 06/15/17 10:01 Results - Vital Signs Recent Vital Signs: Last Vital Signs Temp 98.6 F 06/13/17 16:00 Pulse 125 H 06/13/17 18:01 Resp 21 06/13/17 18:01 BP 150/87 06/13/17 16:00 Pulse Ox 97 06/13/17 16:00 - Labs Result Diagrams: 06/13/17 13:18 06/13/17 13:18 Labs: Laboratory Results - last 24 hr 06/13/17 06/13/17 06/13/17 13:18 13:18 13:18 WBC 7.8 RBC 4.92 Hgb 14.5 Hct 43.3 MCV 88.1 MCH 29.6 MCHC 33.5 RDW 15.4 H Plt Count 327 MPV 8.9 Neut % (Auto) 65.6 Lymph % (Auto) 27.4 [place] % (Auto) 5.5 Eos % (Auto) 0.5 Baso % (Auto) 1.0 Neut # 5.1 Lymph # 2.1 [place] # 0.4 Eos # 0.0 Baso # 0.1 PT 15.2 H INR 1.3 APTT 35 H D-Dimer, Quantitative Puncture Site pCO2 pO2 HCO3 ABG pH ABG Total CO2 ABG O2 Saturation ABG Base Excess Leoncio Test ABG Potassium A-a O2 Difference Respiratory Index Glucose Lactate Liter Flow FiO2 Sodium 140 Potassium 3.9 Chloride 101 Carbon Dioxide 25 Anion Gap 17 BUN 13 Creatinine 0.8 Est GFR ( Amer) > 60 Est GFR (Non-Af Amer) > 60 POC Glucose (mg/dL) Random Glucose 122 H Calcium 8.5 L Total Bilirubin 0.6 AST 63 H ALT 57 Alkaline Phosphatase 88 Total Creatine Kinase CK-MB (Mass) Troponin I NT-Pro-B Natriuret Pep 407 Total Protein 7.2 Albumin 3.8 Globulin 3.5 Albumin/Globulin Ratio 1.1 Free T4 TSH 3rd Generation Arterial Blood Potassium Urine Color Urine Clarity Urine pH Ur Specific [place] Urine Protein Urine Glucose (UA) Urine Ketones Urine Blood Urine Nitrate Urine Bilirubin Urine Urobilinogen Ur Leukocyte Esterase Urine WBC (Auto) Urine RBC (Auto) Urine Bacteria 06/13/17 06/13/17 06/13/17 14:56 15:20 15:29 WBC RBC Hgb Hct MCV MCH MCHC RDW Plt Count MPV Neut % (Auto) Lymph % (Auto) [place] % (Auto) Eos % (Auto) Baso % (Auto) Neut # Lymph # [place] # Eos # Baso # PT INR APTT D-Dimer, Quantitative Puncture Site Rra pCO2 37 pO2 96 HCO3 24.3 ABG pH 7.41 ABG Total CO2 24.6 ABG O2 Saturation 98.1 H ABG Base Excess -0.8 Leoncio Test Po ABG Potassium 3.5 L A-a O2 Difference 57.0 Respiratory Index 0.6 Glucose 94 Lactate 0.8 Liter Flow 2.0 FiO2 28.0 Sodium 136.0 Potassium Chloride 105.0 Carbon Dioxide Anion Gap BUN Creatinine Est GFR ( Amer) Est GFR (Non-Af Amer) POC Glucose (mg/dL) 94 Random Glucose Calcium Total Bilirubin AST ALT Alkaline Phosphatase Total Creatine Kinase CK-MB (Mass) Troponin I NT-Pro-B Natriuret Pep Total Protein Albumin Globulin Albumin/Globulin Ratio Free T4 2.85 H TSH 3rd Generation Arterial Blood Potassium 3.5 L Urine Color Urine Clarity Urine pH Ur Specific [place] Urine Protein Urine Glucose (UA) Urine Ketones Urine Blood Urine Nitrate Urine Bilirubin Urine Urobilinogen Ur Leukocyte Esterase Urine WBC (Auto) Urine RBC (Auto) Urine Bacteria 06/13/17 06/13/17 06/13/17 15:29 15:29 16:56 WBC RBC Hgb Hct MCV MCH MCHC RDW Plt Count MPV Neut % (Auto) Lymph % (Auto) [place] % (Auto) Eos % (Auto) Baso % (Auto) Neut # Lymph # [place] # Eos # Baso # PT INR APTT D-Dimer, Quantitative < 200 Puncture Site pCO2 pO2 HCO3 ABG pH ABG Total CO2 ABG O2 Saturation ABG Base Excess Leoncio Test ABG Potassium A-a O2 Difference Respiratory Index Glucose Lactate Liter Flow FiO2 Sodium Potassium Chloride Carbon Dioxide Anion Gap BUN Creatinine Est GFR ( Amer) Est GFR (Non-Af Amer) POC Glucose (mg/dL) Random Glucose Calcium Total Bilirubin AST ALT Alkaline Phosphatase Total Creatine Kinase 122 CK-MB (Mass) 3.36 Troponin I < 0.0120 NT-Pro-B Natriuret Pep 376 Total Protein Albumin Globulin Albumin/Globulin Ratio Free T4 TSH 3rd Generation 0.39 L Arterial Blood Potassium Urine Color Urine Clarity Urine pH Ur Specific [place] Urine Protein Urine Glucose (UA) Urine Ketones Urine Blood Urine Nitrate Urine Bilirubin Urine Urobilinogen Ur Leukocyte Esterase Urine WBC (Auto) Urine RBC (Auto) Urine Bacteria 06/13/17 18:17 WBC RBC Hgb Hct MCV MCH MCHC RDW Plt Count MPV Neut % (Auto) Lymph % (Auto) [place] % (Auto) Eos % (Auto) Baso % (Auto) Neut # Lymph # [place] # Eos # Baso # PT INR APTT D-Dimer, Quantitative Puncture Site pCO2 pO2 HCO3 ABG pH ABG Total CO2 ABG O2 Saturation ABG Base Excess Leoncio Test ABG Potassium A-a O2 Difference Respiratory Index Glucose Lactate Liter Flow FiO2 Sodium Potassium Chloride Carbon Dioxide Anion Gap BUN Creatinine Est GFR ( Amer) Est GFR (Non-Af Amer) POC Glucose (mg/dL) Random Glucose Calcium Total Bilirubin AST ALT Alkaline Phosphatase Total Creatine Kinase CK-MB (Mass) Troponin I NT-Pro-B Natriuret Pep Total Protein Albumin Globulin Albumin/Globulin Ratio Free T4 TSH 3rd Generation Arterial Blood Potassium Urine Color Yellow Urine Clarity Clear Urine pH 5.0 Ur Specific [place] 1.026 Urine Protein Negative Urine Glucose (UA) Normal Urine Ketones Trace Urine Blood Negative Urine Nitrate Negative Urine Bilirubin Negative Urine Urobilinogen Normal Ur Leukocyte Esterase Neg Urine WBC (Auto) 4 Urine RBC (Auto) 1 Urine Bacteria Rare
[2017-06-13] MEDS: Oxycodone/Acetaminophen 5/325 mg Tab PO PRN (19:50)
--- NOTE | 2017-06-14 00:58 | CON ---
DATE: 06/13/2017 REQUESTING PHYSICIAN: Emergency room. HISTORY: This is a 62-year-old male with multiple-day history of right facial pain, constant, moderate in intensity. No runny nose. No discharge. PAST MEDICAL HISTORY: As noted in the chart by me. MEDICATIONS: As noted in the chart by me. PHYSICAL EXAMINATION: HEAD: Atraumatic and normocephalic. FACE: Good facial movements bilaterally. CONSTITUTIONAL: Well fed, well nourished. COMMUNICATION: Communicates well appropriately. EXTERNAL NOSE: No masses. No lesions. No erythema. No edema. INTERNAL NOSE: Deviated septum. Inferior turbinate missing on the right. No masses. No lesions. No erythema. No edema. ORAL CAVITY AND OROPHARYNX: No masses. No lesions. No erythema. No edema. NECK: Supple. THYROID: No thyromegaly. No goiter. LYMPH NODES: No lymphadenopathy of the neck. NEUROLOGIC: The patient is awake, alert, and oriented x3. PAROTID GLANDS: No masses. No lesions. No erythema. No edema. DIAGNOSTIC DATA: CAT scan was reviewed by me, it shows an atelectatic right maxillary sinus with mucosal thickening. The medial wall is missing. There is also a salt and pepper appearance to the bones on the hard palate and maxillary sinus. There is a possible mass posterior to the posterior wall of the maxillary sinus on the right. ASSESSMENT: 1. Sinusitis. 2. Possible osteomyelitis. 3. Possible sinus tumor. The patient does have a history of prior sinus surgery. RECOMMENDATION: IV antibiotics as per Infectious Disease. MRI and bone scan. Blue Kohler MD
[2017-06-14] MEDS: Clindamycin 600mg/50ml NS 600 MG/50 ML BAG IVPB SCH ×4 (01:02→19:06)
[2017-06-14] MEDS: Piperacill/Tazo 4.5gm in Dex 4.5 GM/100 ML BAG IVPB SCH ×3 (01:36→18:00)
[2017-06-14] MEDS: Oxycodone/Acetaminophen 5/325 mg Tab PO PRN (03:20)
[2017-06-14] MEDS: Vancomycin 1 gm/NS 200 ml 1 GM/200 ML BAG IVPB SCH ×2 (07:42→19:06)
[2017-06-14] MEDS: Albuterol-Ipratrop 3 mg / 0.5 (3 ml) UD INH SCH ×3 (07:50→19:34)
[2017-06-14] MEDS: Enoxaparin 40 mg Syringe SC SCH (09:21)
--- NOTE | 2017-06-14 11:01 | CP.PCM.CON ---
History of Present Illness - History of Present Illness History of Present Illness: reason for consultation: shortness of breath 62-year-old male with history of COPD admitted with right side facial pain. Maxillofacial CT showed right maxillary sinusitis and severe osteonecrosis off inferolateral wall of right maxilla. Patient yesterday had rapid response for shortness of breath. CT angio showed no pulmonary embolism. Patient lying comfortably in no acute distress. Patient states he has not used any rescue inhaler for a long time Review of Systems - Review of Systems All systems: reviewed and no additional remarkable complaints except (right facial pain) Past Patient History - Past Medical History & Family History Past Medical History?: Yes - Past Social History Smoking Status: Light Smoker < 10 Cigarettes Daily - CARDIAC Hx Congestive Heart Failure: Yes (since 2009) Hx Hypertension: Yes - PULMONARY Hx Chronic Obstructive Pulmonary Disease (COPD): Yes Hx Pneumonia: Yes (in 2009) - MUSCULOSKELETAL/RHEUMATOLOGICAL Hx Falls: No - PSYCHIATRIC Hx Substance Use: No - ANESTHESIA Hx Anesthesia: No Meds Allergies/Adverse Reactions: Allergies Allergy/AdvReac Type Severity Reaction Status Date / Time No Known Allergies Allergy Unverified 06/13/17 09:20 - Medications Medications: Current Medications Albuterol/Ipratropium (Duoneb 3 Mg/0.5 Mg (3 Ml) Ud) 3 ml INH RQ6 [facility] Enoxaparin Sodium (Lovenox) 40 mg SC DAILY [facility] Last Admin: 06/14/17 09:21 Dose: 40 mg Furosemide (Lasix) 40 mg IVP DAILY [facility] Last Admin: 06/14/17 09:21 Dose: 40 mg Vancomycin/Sodium Chloride (Vancomycin 1 Gm/Ns 200 Ml) 1 gm in 200 mls @ 133 mls/hr IVPB Q12H [facility] Stop: 06/18/17 20:01 Last Admin: 06/14/17 07:42 Dose: 133 mls/hr Clindamycin Phosphate (Cleocin In Normal Saline) 600 mg in 50 mls @ 100 mls/hr IVPB Q6H [facility] Last Admin: 06/14/17 08:02 Dose: 100 mls/hr Piperacillin Sod/Tazobactam Sod (Zosyn 4.5 Gm Iv Premix) 4.5 gm in 100 mls @ 100 mls/hr IVPB Q8H [facility] Last Admin: 06/14/17 09:20 Dose: 100 mls/hr Losartan Potassium (Cozaar) 50 mg PO DAILY [facility] Last Admin: 06/14/17 09:22 Dose: 50 mg Montelukast Sodium (Singulair) 10 mg PO HS [facility] Last Admin: 06/13/17 22:46 Dose: 10 mg Oxycodone/Acetaminophen (Percocet 5/325 Mg Tab) 1 tab PO Q6H PRN PRN Reason: Pain, severe (8-10) Stop: 06/16/17 16:06 Last Admin: 06/14/17 03:20 Dose: 1 tab Pantoprazole Sodium (Protonix Inj) 40 mg IVP DAILY [facility] Last Admin: 06/14/17 09:21 Dose: 40 mg Pneumococcal Polyvalent Vaccine (Pneumovax 23 Vaccine) 0.5 ml IM .ONCE ONE Stop: 06/15/17 10:01 Physical Exam - Head Exam Head Exam: ATRAUMATIC, NORMOCEPHALIC - Eye Exam Eye Exam: Normal appearance - ENT Exam ENT Exam: Mucous Membranes Moist Results - Vital Signs Recent Vital Signs: Last Vital Signs Temp 97.4 F L 06/14/17 08:00 Pulse 113 H 06/14/17 08:00 Resp 20 06/14/17 08:00 BP 119/72 06/14/17 09:21 Pulse Ox 98 06/14/17 08:00 - Labs Result Diagrams: 06/13/17 13:18 06/13/17 13:18 Labs: Laboratory Results - last 24 hr 06/13/17 06/13/17 06/13/17 13:18 13:18 13:18 WBC 7.8 RBC 4.92 Hgb 14.5 Hct 43.3 MCV 88.1 MCH 29.6 MCHC 33.5 RDW 15.4 H Plt Count 327 MPV 8.9 Neut % (Auto) 65.6 Lymph % (Auto) 27.4 Mobile % (Auto) 5.5 Eos % (Auto) 0.5 Baso % (Auto) 1.0 Neut # 5.1 Lymph # 2.1 Mobile # 0.4 Eos # 0.0 Baso # 0.1 PT 15.2 H INR 1.3 APTT 35 H D-Dimer, Quantitative Puncture Site pCO2 pO2 HCO3 ABG pH ABG Total CO2 ABG O2 Saturation ABG Base Excess Leoncio Test ABG Potassium A-a O2 Difference Respiratory Index Glucose Lactate Liter Flow FiO2 Sodium 140 Potassium 3.9 Chloride 101 Carbon Dioxide 25 Anion Gap 17 BUN 13 Creatinine 0.8 Est GFR ( Amer) > 60 Est GFR (Non-Af Amer) > 60 POC Glucose (mg/dL) Random Glucose 122 H Calcium 8.5 L Total Bilirubin 0.6 AST 63 H ALT 57 Alkaline Phosphatase 88 Total Creatine Kinase CK-MB (Mass) Troponin I C-React Prot High Sens NT-Pro-B Natriuret Pep 407 Total Protein 7.2 Albumin 3.8 Globulin 3.5 Albumin/Globulin Ratio 1.1 Free T4 TSH 3rd Generation Arterial Blood Potassium Urine Color Urine Clarity Urine pH Ur Specific [place] Urine Protein Urine Glucose (UA) Urine Ketones Urine Blood Urine Nitrate Urine Bilirubin Urine Urobilinogen Ur Leukocyte Esterase Urine WBC (Auto) Urine RBC (Auto) Urine Bacteria 06/13/17 06/13/17 06/13/17 14:56 15:20 15:29 WBC RBC Hgb Hct MCV MCH MCHC RDW Plt Count MPV Neut % (Auto) Lymph % (Auto) Mobile % (Auto) Eos % (Auto) Baso % (Auto) Neut # Lymph # Mobile # Eos # Baso # PT INR APTT D-Dimer, Quantitative Puncture Site Rra pCO2 37 pO2 96 HCO3 24.3 ABG pH 7.41 ABG Total CO2 24.6 ABG O2 Saturation 98.1 H ABG Base Excess -0.8 Leoncio Test Po ABG Potassium 3.5 L A-a O2 Difference 57.0 Respiratory Index 0.6 Glucose 94 Lactate 0.8 Liter Flow 2.0 FiO2 28.0 Sodium 136.0 Potassium Chloride 105.0 Carbon Dioxide Anion Gap BUN Creatinine Est GFR ( Amer) Est GFR (Non-Af Amer) POC Glucose (mg/dL) 94 Random Glucose Calcium Total Bilirubin AST ALT Alkaline Phosphatase Total Creatine Kinase CK-MB (Mass) Troponin I C-React Prot High Sens NT-Pro-B Natriuret Pep Total Protein Albumin Globulin Albumin/Globulin Ratio Free T4 2.85 H TSH 3rd Generation Arterial Blood Potassium 3.5 L Urine Color Urine Clarity Urine pH Ur Specific [place] Urine Protein Urine Glucose (UA) Urine Ketones Urine Blood Urine Nitrate Urine Bilirubin Urine Urobilinogen Ur Leukocyte Esterase Urine WBC (Auto) Urine RBC (Auto) Urine Bacteria 06/13/17 06/13/17 06/13/17 15:29 15:29 16:56 WBC RBC Hgb Hct MCV MCH MCHC RDW Plt Count MPV Neut % (Auto) Lymph % (Auto) Mobile % (Auto) Eos % (Auto) Baso % (Auto) Neut # Lymph # Mobile # Eos # Baso # PT INR APTT D-Dimer, Quantitative < 200 Puncture Site pCO2 pO2 HCO3 ABG pH ABG Total CO2 ABG O2 Saturation ABG Base Excess Leoncio Test ABG Potassium A-a O2 Difference Respiratory Index Glucose Lactate Liter Flow FiO2 Sodium Potassium Chloride Carbon Dioxide Anion Gap BUN Creatinine Est GFR ( Amer) Est GFR (Non-Af Amer) POC Glucose (mg/dL) Random Glucose Calcium Total Bilirubin AST ALT Alkaline Phosphatase Total Creatine Kinase 122 CK-MB (Mass) 3.36 Troponin I < 0.0120 C-React Prot High Sens NT-Pro-B Natriuret Pep 376 Total Protein Albumin Globulin Albumin/Globulin Ratio Free T4 TSH 3rd Generation 0.39 L Arterial Blood Potassium Urine Color Urine Clarity Urine pH Ur Specific [place] Urine Protein Urine Glucose (UA) Urine Ketones Urine Blood Urine Nitrate Urine Bilirubin Urine Urobilinogen Ur Leukocyte Esterase Urine WBC (Auto) Urine RBC (Auto) Urine Bacteria 06/13/17 06/14/17 18:17 07:02 WBC RBC Hgb Hct MCV MCH MCHC RDW Plt Count MPV Neut % (Auto) Lymph % (Auto) Mobile % (Auto) Eos % (Auto) Baso % (Auto) Neut # Lymph # Mobile # Eos # Baso # PT INR APTT D-Dimer, Quantitative Puncture Site pCO2 pO2 HCO3 ABG pH ABG Total CO2 ABG O2 Saturation ABG Base Excess Leoncio Test ABG Potassium A-a O2 Difference Respiratory Index Glucose Lactate Liter Flow FiO2 Sodium Potassium Chloride Carbon Dioxide Anion Gap BUN Creatinine Est GFR ( Amer) Est GFR (Non-Af Amer) POC Glucose (mg/dL) Random Glucose Calcium Total Bilirubin AST ALT Alkaline Phosphatase Total Creatine Kinase CK-MB (Mass) Troponin I C-React Prot High Sens 3.18 H NT-Pro-B Natriuret Pep Total Protein Albumin Globulin Albumin/Globulin Ratio Free T4 TSH 3rd Generation Arterial Blood Potassium Urine Color Yellow Urine Clarity Clear Urine pH 5.0 Ur Specific [place] 1.026 Urine Protein Negative Urine Glucose (UA) Normal Urine Ketones Trace Urine Blood Negative Urine Nitrate Negative Urine Bilirubin Negative Urine Urobilinogen Normal Ur Leukocyte Esterase Neg Urine WBC (Auto) 4 Urine RBC (Auto) 1 Urine Bacteria Rare Assessment & Plan (1) Chronic obstructive lung disease Status: Acute Comment: continue nebulizer treatment. Consider pulmonary function test as outpatient. Continue antibiotics for sinusitis (2) Sinusitis, acute maxillary Status: Acute
[2017-06-14 11:43] LABS: FT3 3.87 pg/mL (2.77-5.27)
--- NOTE | 2017-06-14 12:29 | CP.PCM.PN ---
Subjective - Date & Time of Evaluation Date of Evaluation: 06/14/17 Time of Evaluation: 07:00 - Subjective Subjective: Low TSH suggests hyperthyroidism likely reason for Tachycardia Start Tapazole 5mg po daily Endo consult with Dr. Yoon Add Metoprolol 12.5 po bid Objective - Vital Signs/Intake and Output Vital Signs (last 24 hours): Temp Pulse Resp BP Pulse Ox 97.4 F L 113 H 20 119/72 98 06/14/17 08:00 06/14/17 08:00 06/14/17 08:00 06/14/17 09:21 06/14/17 08:00 Intake and Output: 06/14/17 06/14/17 06:59 18:59 Intake Total 880 Output Total 675 Balance 205 - Medications Medications: Current Medications Albuterol/Ipratropium (Duoneb 3 Mg/0.5 Mg (3 Ml) Ud) 3 ml INH RQ6 ANOOP Enoxaparin Sodium (Lovenox) 40 mg SC DAILY [facility] Last Admin: 06/14/17 09:21 Dose: 40 mg Furosemide (Lasix) 40 mg IVP DAILY [facility] Last Admin: 06/14/17 09:21 Dose: 40 mg Vancomycin/Sodium Chloride (Vancomycin 1 Gm/Ns 200 Ml) 1 gm in 200 mls @ 133 mls/hr IVPB Q12H [facility] Stop: 06/18/17 20:01 Last Admin: 06/14/17 07:42 Dose: 133 mls/hr Clindamycin Phosphate (Cleocin In Normal Saline) 600 mg in 50 mls @ 100 mls/hr IVPB Q6H [facility] Last Admin: 06/14/17 08:02 Dose: 100 mls/hr Piperacillin Sod/Tazobactam Sod (Zosyn 4.5 Gm Iv Premix) 4.5 gm in 100 mls @ 100 mls/hr IVPB Q8H [facility] Last Admin: 06/14/17 09:20 Dose: 100 mls/hr Losartan Potassium (Cozaar) 50 mg PO DAILY [facility] Last Admin: 06/14/17 09:22 Dose: 50 mg Methimazole (Tapazole) 5 mg PO DAILY [facility] Metoprolol Tartrate (Lopressor) 12.5 mg PO BID [facility] Montelukast Sodium (Singulair) 10 mg PO HS [facility] Last Admin: 06/13/17 22:46 Dose: 10 mg Oxycodone/Acetaminophen (Percocet 5/325 Mg Tab) 1 tab PO Q6H PRN PRN Reason: Pain, severe (8-10) Stop: 06/16/17 16:06 Last Admin: 06/14/17 03:20 Dose: 1 tab Pantoprazole Sodium (Protonix Inj) 40 mg IVP DAILY [facility] Last Admin: 06/14/17 09:21 Dose: 40 mg Pneumococcal Polyvalent Vaccine (Pneumovax 23 Vaccine) 0.5 ml IM .ONCE ONE Stop: 06/15/17 10:01 - Labs Labs: 06/13/17 13:18 06/13/17 13:18 PT 15.2 SECONDS (9.7-12.2) H 06/13/17 13:18 INR 1.3 06/13/17 13:18 APTT 35 SECONDS (21-34) H 06/13/17 13:18
[2017-06-14] MEDS ORDERED: methIMAzole 5 MG TAB PO SCH (12:30)
[2017-06-14 13:48] LABS: THYROID STIMULATING HORMONE 0.21 mIU/L (0.46-4.68)
--- NOTE | 2017-06-14 16:03 | CP.PCM.PN ---
Subjective - Date & Time of Evaluation Date of Evaluation: 06/14/17 Time of Evaluation: 12:00 - Subjective Subjective: clinically same Objective - Vital Signs/Intake and Output Vital Signs (last 24 hours): Temp Pulse Resp BP Pulse Ox 97.7 F 132 H 20 129/67 96 06/14/17 15:32 06/14/17 15:32 06/14/17 15:32 06/14/17 15:32 06/14/17 15:32 Intake and Output: 06/14/17 06/14/17 06:59 18:59 Intake Total 880 Output Total 675 Balance 205 - Medications Medications: Current Medications Albuterol/Ipratropium (Duoneb 3 Mg/0.5 Mg (3 Ml) Ud) 3 ml INH RQ6 [facility] Last Admin: 06/14/17 13:45 Dose: 3 ml Enoxaparin Sodium (Lovenox) 40 mg SC DAILY [facility] Last Admin: 06/14/17 09:21 Dose: 40 mg Furosemide (Lasix) 40 mg IVP DAILY [facility] Last Admin: 06/14/17 09:21 Dose: 40 mg Vancomycin/Sodium Chloride (Vancomycin 1 Gm/Ns 200 Ml) 1 gm in 200 mls @ 133 mls/hr IVPB Q12H [facility] Stop: 06/18/17 20:01 Last Admin: 06/14/17 07:42 Dose: 133 mls/hr Clindamycin Phosphate (Cleocin In Normal Saline) 600 mg in 50 mls @ 100 mls/hr IVPB Q6H [facility] Last Admin: 06/14/17 13:33 Dose: 100 mls/hr Piperacillin Sod/Tazobactam Sod (Zosyn 4.5 Gm Iv Premix) 4.5 gm in 100 mls @ 100 mls/hr IVPB Q8H [facility] Last Admin: 06/14/17 09:20 Dose: 100 mls/hr Losartan Potassium (Cozaar) 50 mg PO DAILY [facility] Last Admin: 06/14/17 09:22 Dose: 50 mg Methimazole (Tapazole) 5 mg PO TID [facility] Metoprolol Tartrate (Lopressor) 12.5 mg PO BID [facility] Montelukast Sodium (Singulair) 10 mg PO HS [facility] Last Admin: 06/13/17 22:46 Dose: 10 mg Oxycodone/Acetaminophen (Percocet 5/325 Mg Tab) 1 tab PO Q6H PRN PRN Reason: Pain, severe (8-10) Stop: 06/16/17 16:06 Last Admin: 06/14/17 03:20 Dose: 1 tab Pantoprazole Sodium (Protonix Inj) 40 mg IVP DAILY [facility] Last Admin: 06/14/17 09:21 Dose: 40 mg Pneumococcal Polyvalent Vaccine (Pneumovax 23 Vaccine) 0.5 ml IM .ONCE ONE Stop: 06/15/17 10:01 - Labs Labs: 06/13/17 13:18 06/13/17 13:18 PT 15.2 SECONDS (9.7-12.2) H 06/13/17 13:18 INR 1.3 06/13/17 13:18 APTT 35 SECONDS (21-34) H 06/13/17 13:18 - Constitutional Appears: Well - Head Exam Head Exam: ATRAUMATIC, NORMAL INSPECTION, NORMOCEPHALIC - Eye Exam Eye Exam: EOMI, Normal appearance, PERRL Pupil Exam: NORMAL ACCOMODATION, PERRL - ENT Exam ENT Exam: Mucous Membranes Moist, Normal Exam - Neck Exam Neck Exam: Full ROM, Normal Inspection. absent: Lymphadenopathy - Respiratory Exam Respiratory Exam: Decreased Breath Sounds - Cardiovascular Exam Cardiovascular Exam: REGULAR RHYTHM, +S1, +S2 - GI/Abdominal Exam GI & Abdominal Exam: Soft, Diminished Bowel Sounds - Rectal Exam Rectal Exam: Deferred
[2017-06-14] MEDS: methIMAzole 5 MG TAB PO SCH (17:54)
--- NOTE | 2017-06-14 19:01 | CON ---
ENDOCRINOLOGY CONSULTATION LOCATION: Room 669. HISTORY OF PRESENT ILLNESS: This is a 62-year-old male with known history of hypertension and dyslipidemia, presenting here with right facial pain and tenderness and evaluated to have acute maxillary sinusitis with underlying severe osteonecrosis, inflammation, and sinusitis by CAT scan testing as noted and is being referred now for evaluation of abnormal thyroid function studies and possible hyperthyroidism because of supervening sinus tachycardia as noted thereof. PAST MEDICAL HISTORY: As mentioned above, history of hypertension, dyslipidemia, history of chronic obstructive lung disease to underlying nicotine dependence, history of congestive heart failure with underlying coronary artery disease as noted. FAMILY HISTORY: Positive for hypertension and diabetes. SOCIAL HISTORY: The patient has a supportive family. Admits to light smoking habit and consumes half a pack a day for many years now. No other known substance use. REVIEW OF SYSTEMS: As mentioned above. Admits to generalized body weakness with easy fatigability and tiredness and suboptimal energy level. Also admits to episodic dizziness and lightheadedness, worse on the day of admission. No chest pains, but admits to precordial tightness and palpitations especially on exertion as noted. His oral intake has been variable with nausea and dyspepsia and vague upper abdominal pains as noted. PHYSICAL EXAMINATION: GENERAL: This is an average-built male, in no apparent distress. VITAL SIGNS: Blood pressure 150/92, pulse of 120 beats per minute and regular, temperature 98, respirations 20. Height is 5 feet 8 inches. Weight is 240 pounds. HEENT: Head normocephalic. Eyes anicteric with pink conjunctivae. Funduscopy not possible at this time. Ears, nose, and throat otherwise normal. NECK: Supple. Thyroid gland is normal in size. No carotid bruits or any cervical adenopathy. CARDIOPULMONARY: Adynamic precordium. S1, S2 is rapid and regular. LUNGS: Clear to auscultation. ABDOMEN: Flat, soft with positive bowel sounds. EXTREMITIES: No peripheral edema. Pulses are +2 bilaterally. LABORATORY DATA: His initial TSH is 0.39 with a free T4 of 2.85 and a repeat free T4 of 2.54 with a TSH of 0.21. ASSESSMENT: This is a 62-year-old male presenting here with acute right maxillary sinusitis with underlying osteonecrosis and cellulitis and is now being referred for evaluation of abnormal thyroid studies with persistent tachycardia and elevated thyroid indices thereof and most likely related to underlying hyperthyroidism most likely related to Graves disease. We will continue the present medical management at this time and we will add Tapazole given at 5 mg p.o. t.i.d. after meals to start tonight. We will titrate incrementally as indicated to optimize metabolic control. We will also obtain serum chemistries and supplement accordingly as needed. We will follow and advise accordingly. We have started with Tapazole given as 5 mg p.o. t.i.d. and we will titrate according to the patient's to optimize . We will also add thyroid antibodies with thyroid peroxidase antibody and a thyroid stimulating immunoglobulin, which would confirm and/or negate the presence of underlying thyroid autoimmunity. We will follow. Riri Yoon MD
--- NOTE | 2017-06-14 20:18 | CP.PCM.PN ---
Subjective - Date & Time of Evaluation Date of Evaluation: 06/14/17 Time of Evaluation: 20:18 - Subjective Subjective: AFEBRILE, STATES FEELING BETTER STATES CAN HEAR BETTER TODAY S/P RR YESTERDAY. SEEN BY PULMONARY AND NOTED CT ANGIO -VE FOR PE. TOLERATING iv ANTIBIOTICS. Objective - Vital Signs/Intake and Output Vital Signs (last 24 hours): Temp Pulse Resp BP Pulse Ox 97.7 F 132 H 134 H 129/67 96 06/14/17 15:32 06/14/17 16:00 06/14/17 16:15 06/14/17 15:32 06/14/17 15:32 - Medications Medications: Current Medications Albuterol/Ipratropium (Duoneb 3 Mg/0.5 Mg (3 Ml) Ud) 3 ml INH RQ6 [facility] Last Admin: 06/14/17 19:34 Dose: 3 ml Enoxaparin Sodium (Lovenox) 40 mg SC DAILY [facility] Last Admin: 06/14/17 09:21 Dose: 40 mg Furosemide (Lasix) 40 mg IVP DAILY [facility] Last Admin: 06/14/17 09:21 Dose: 40 mg Vancomycin/Sodium Chloride (Vancomycin 1 Gm/Ns 200 Ml) 1 gm in 200 mls @ 133 mls/hr IVPB Q12H [facility] Stop: 06/18/17 20:01 Last Admin: 06/14/17 19:06 Dose: 133 mls/hr Clindamycin Phosphate (Cleocin In Normal Saline) 600 mg in 50 mls @ 100 mls/hr IVPB Q6H [facility] Last Admin: 06/14/17 19:06 Dose: 100 mls/hr Piperacillin Sod/Tazobactam Sod (Zosyn 4.5 Gm Iv Premix) 4.5 gm in 100 mls @ 100 mls/hr IVPB Q8H [facility] Last Admin: 06/14/17 18:00 Dose: 100 mls/hr Losartan Potassium (Cozaar) 50 mg PO DAILY [facility] Last Admin: 06/14/17 09:22 Dose: 50 mg Methimazole (Tapazole) 5 mg PO TID [facility] Last Admin: 06/14/17 17:54 Dose: 5 mg Metoprolol Tartrate (Lopressor) 12.5 mg PO BID [facility] Last Admin: 06/14/17 17:54 Dose: 12.5 mg Montelukast Sodium (Singulair) 10 mg PO HS [facility] Last Admin: 06/13/17 22:46 Dose: 10 mg Oxycodone/Acetaminophen (Percocet 5/325 Mg Tab) 1 tab PO Q6H PRN PRN Reason: Pain, severe (8-10) Stop: 06/16/17 16:06 Last Admin: 06/14/17 03:20 Dose: 1 tab Pantoprazole Sodium (Protonix Inj) 40 mg IVP DAILY [facility] Last Admin: 06/14/17 09:21 Dose: 40 mg Pneumococcal Polyvalent Vaccine (Pneumovax 23 Vaccine) 0.5 ml IM .ONCE ONE Stop: 06/15/17 10:01 - Labs Labs: 06/13/17 13:18 06/13/17 13:18 PT 15.2 SECONDS (9.7-12.2) H 06/13/17 13:18 INR 1.3 06/13/17 13:18 APTT 35 SECONDS (21-34) H 06/13/17 13:18 - Constitutional Appears: No Acute Distress - Head Exam Head Exam: NORMAL INSPECTION - Eye Exam Eye Exam: EOMI, PERRL - ENT Exam ENT Exam: Normal Oropharynx Additional comments: POOR ORAL HYGIENE. MULTIPLE TEETH ADMITS MISSING. - Neck Exam Neck Exam: Normal Inspection, Thyromegaly - Respiratory Exam Respiratory Exam: Clear to Ausculation Bilateral, NORMAL BREATHING PATTERN - Cardiovascular Exam Cardiovascular Exam: Tachycardia, +S1, +S2 - GI/Abdominal Exam GI & Abdominal Exam: Soft, Hypoactive Bowel Sounds. absent: Rebound - Extremities Exam Extremities Exam: absent: Calf Tenderness, Pedal Edema, Tenderness - Neurological Exam Neurological Exam: Awake, CN II-XII Intact, Oriented x3, Reflexes Normal - Psychiatric Exam Psychiatric exam: Normal Mood - Skin Skin Exam: Normal Color, Warm Assessment and Plan (1) Sinusitis, acute maxillary Assessment & Plan: ON iv ZOSYN 4.5 G EVERY 8 HOURLY .06/13/17. CONTINUE iv VANCOMYCIN 1 G EVERY 12 HOURLY FOR STAPH AND MRSA COVERAGE.06/13/17 CONTINUE iv CLEOCIN 600 MG iv PIGGYBACK EVERY 6 HOURLY 06/13/17. F/U VANCO TROUGH LEVEL PRIOR TO FOURTH DOSE AND MAINTAIN BETWEEN 10 AND 20. PT HAS OSTEONECROSIS AND ACUTE ON CHRONIC OSTEOMYELITIS RIGHT MAXILLA. WILL NEED ENT EVAL. Status: Acute (2) Abnormal CT scan, sinus Status: Acute (3) Dental abscess Assessment & Plan: MAXILLOFACIAL SURGERY EVALUATION Status: Acute (4) Hypertension Status: Acute (5) Chronic obstructive lung disease Status: Acute
[2017-06-15] MEDS: Albuterol-Ipratrop 3 mg / 0.5 (3 ml) UD INH SCH ×4 (02:02→19:51)
[2017-06-15] MEDS: Piperacill/Tazo 4.5gm in Dex 4.5 GM/100 ML BAG IVPB SCH ×3 (02:36→18:22)
[2017-06-15] MEDS: Clindamycin 600mg/50ml NS 600 MG/50 ML BAG IVPB SCH ×4 (02:37→19:09)
[2017-06-15] MEDS: Vancomycin 1 gm/NS 200 ml 1 GM/200 ML BAG IVPB SCH ×2 (07:00→19:08)
[2017-06-15 09:30] LABS: BASO # 0.1 K/uL (0.0-0.2); EOS # 0.1 K/uL (0.0-0.7); EOS % 1.8 % (0.0-4.0); HEMATOCRIT 37.4 % (35.0-51.0); MEAN CELL VOLUME 88.2 fL (80.0-94.0); MEAN CORPUSCULAR HEMOGLOBIN 29.3 pg (27.0-31.0); MEAN CORPUSCULAR HGB CONC 33.2 g/dL (33.0-37.0); MEAN PLATELET VOLUME 8.5 fL (7.2-11.7); MONO # 0.5 K/uL (0.0-0.8); MONO % 7.6 % (0.0-10.0); RED CELL DISTRIBUTION WIDTH 15.6 % (11.5-14.5); WHITE BLOOD COUNT 6.7 K/uL (4.8-10.8)
[2017-06-15] MEDS: methIMAzole 5 MG TAB PO SCH (09:46)
[2017-06-15] MEDS: Enoxaparin 40 mg Syringe SC SCH (09:46)
[2017-06-15] MEDS ORDERED: Influenza Vaccine 60 mcg/0.5 mL SYR (4YR UP) IM ONE (10:00)
[2017-06-15] MEDS ORDERED: Pneumococcal 23-Valent Vaccine IM ONE (10:00)
[2017-06-15 10:09] LABS: T4 11.9 ug/dL (5.5-11.0)
[2017-06-15 10:11] LABS: ALB/GLOB RATIO 1.1 (1.0-2.1); ALKALINE PHOSPHATASE 60 U/L (38-126); ALT/SGPT 53 U/L (21-72); AST/SGOT 54 U/L (17-59); BILIRUBIN,TOTAL 0.9 mg/dL (0.2-1.3); BLOOD UREA NITROGEN 19 mg/dL (9-20); CALCIUM 7.9 mg/dl (8.6-10.4); CARBON DIOXIDE 29 mmol/L (22-30); CHLORIDE 101 mmol/L (98-107); GFR AFRICAN-AMERICAN > 60; GLUCOSE,RANDOM 118 mg/dL (75-110); POTASSIUM 3.3 mmol/L (3.6-5.2); SODIUM 138 mmol/L (132-148); TOTAL PROTEIN 6.3 g/dL (6.3-8.3)
[2017-06-15 11:03] LABS: THYROID STIMULATING HORMONE 0.17 mIU/L (0.46-4.68)
[2017-06-15] MEDS ORDERED: Potassium Chloride 20 mEq ER Tab PO ONE ×2 (11:34→12:15)
--- NOTE | 2017-06-15 16:53 | CP.PCM.PN ---
Subjective - Date & Time of Evaluation Date of Evaluation: 06/15/17 Time of Evaluation: 12:40 - Subjective Subjective: clinically same Objective - Vital Signs/Intake and Output Vital Signs (last 24 hours): Temp Pulse Resp BP Pulse Ox 98.1 F 105 H 20 97/58 L 97 06/15/17 09:04 06/15/17 09:04 06/15/17 09:04 06/15/17 09:48 06/15/17 09:04 Intake and Output: 06/15/17 06/15/17 06:59 18:59 Intake Total 830 Balance 830 - Medications Medications: Current Medications Albuterol/Ipratropium (Duoneb 3 Mg/0.5 Mg (3 Ml) Ud) 3 ml INH RQ6 [facility] Last Admin: 06/15/17 14:46 Dose: Not Given Enoxaparin Sodium (Lovenox) 40 mg SC DAILY [facility] Last Admin: 06/15/17 09:46 Dose: 40 mg Furosemide (Lasix) 40 mg IVP DAILY [facility] Last Admin: 06/15/17 09:48 Dose: Not Given Vancomycin/Sodium Chloride (Vancomycin 1 Gm/Ns 200 Ml) 1 gm in 200 mls @ 133 mls/hr IVPB Q12H [facility] Stop: 06/18/17 20:01 Last Admin: 06/15/17 07:00 Dose: 133 mls/hr Clindamycin Phosphate (Cleocin In Normal Saline) 600 mg in 50 mls @ 100 mls/hr IVPB Q6H [facility] Last Admin: 06/15/17 13:33 Dose: 100 mls/hr Piperacillin Sod/Tazobactam Sod (Zosyn 4.5 Gm Iv Premix) 4.5 gm in 100 mls @ 100 mls/hr IVPB Q8H [facility] Last Admin: 06/15/17 09:50 Dose: 100 mls/hr Losartan Potassium (Cozaar) 50 mg PO DAILY [facility] Last Admin: 06/15/17 09:49 Dose: Not Given Methimazole (Tapazole) 10 mg PO BID [facility] Metoprolol Tartrate (Lopressor) 12.5 mg PO BID [facility] Last Admin: 06/15/17 09:45 Dose: 12.5 mg Montelukast Sodium (Singulair) 10 mg PO HS [facility] Last Admin: 06/14/17 22:54 Dose: 10 mg Oxycodone/Acetaminophen (Percocet 5/325 Mg Tab) 1 tab PO Q6H PRN PRN Reason: Pain, severe (8-10) Stop: 06/16/17 16:06 Last Admin: 06/14/17 03:20 Dose: 1 tab Pantoprazole Sodium (Protonix Inj) 40 mg IVP DAILY [facility] Last Admin: 06/15/17 09:51 Dose: 40 mg - Labs Labs: 06/15/17 09:17 06/15/17 09:17 PT 15.2 SECONDS (9.7-12.2) H 06/13/17 13:18 INR 1.3 06/13/17 13:18 APTT 35 SECONDS (21-34) H 06/13/17 13:18 - Constitutional Appears: Well - Head Exam Head Exam: ATRAUMATIC, NORMAL INSPECTION, NORMOCEPHALIC - Eye Exam Eye Exam: EOMI, Normal appearance, PERRL Pupil Exam: NORMAL ACCOMODATION, PERRL - ENT Exam ENT Exam: Mucous Membranes Moist, Normal Exam - Neck Exam Neck Exam: Full ROM, Normal Inspection. absent: Lymphadenopathy - Respiratory Exam Respiratory Exam: Decreased Breath Sounds - Cardiovascular Exam Cardiovascular Exam: REGULAR RHYTHM, +S1, +S2 - GI/Abdominal Exam GI & Abdominal Exam: Soft, Diminished Bowel Sounds - Rectal Exam Rectal Exam: Deferred
[2017-06-16] MEDS: Clindamycin 600mg/50ml NS 600 MG/50 ML BAG IVPB SCH ×4 (01:00→19:58)
[2017-06-16] MEDS: Piperacill/Tazo 4.5gm in Dex 4.5 GM/100 ML BAG IVPB SCH ×3 (01:01→18:19)
[2017-06-16] MEDS: Albuterol-Ipratrop 3 mg / 0.5 (3 ml) UD INH SCH ×4 (01:52→20:30)
[2017-06-16] MEDS: Oxycodone/Acetaminophen 5/325 mg Tab PO PRN (05:35)
[2017-06-16] MEDS: Vancomycin 1 gm/NS 200 ml 1 GM/200 ML BAG IVPB SCH ×2 (07:05→20:00)
--- NOTE | 2017-06-16 07:23 | PN ---
DATE: ENDOCRINOLOGY FOLLOWUP NOTE LOCATION: Room 669. SUBJECTIVE: This is a 62-year-old male with recent admission for acute maxillary sinusitis, currently undergoing IV antibiotic management and also a supervening sinus tachycardia and has been evaluated to have early hyperthyroidism both historically, clinically and by chemically as noted thereof. The repeat thyroid studies today showed a T4 of 11.9 mcg/dL with a free T4 of 2.54 initially and a repeat level today of 1.35. The TSH level was initially 0.21 with a repeat level of 0.17. Chemistries showed a BUN of 19, sodium 138, potassium 3.3, chloride 101, CO2 of 29, glucose 118 and creatinine 1.1. His troponin is less than 0.012. So at this time we will increase and titrate his Tapazole, which was initially given as 5 mg p.o. t.i.d. after meals as ordered and so we will increase his dosing to 10 mg b.i.d. to start today as ordered. We will titrate incrementally as indicated to optimize metabolic control. Serial chemistries will be obtained and we will supplement the potassium accordingly as indicated. I would also expect hypokalemia not only from the IV diuretic use at this time, but also because of the concomitant underlying hyperthyroidism. We will obtain serial chemistries and supplement accordingly as needed. We will follow up with you. Riri Yoon MD
[2017-06-16 09:03] LABS: ALB/GLOB RATIO 0.9 (1.0-2.1); ALKALINE PHOSPHATASE 60 U/L (38-126); ALT/SGPT 54 U/L (21-72); AST/SGOT 47 U/L (17-59); BILIRUBIN,TOTAL 0.6 mg/dL (0.2-1.3); BLOOD UREA NITROGEN 16 mg/dL (9-20); CALCIUM 8.4 mg/dl (8.6-10.4); CARBON DIOXIDE 29 mmol/L (22-30); CHLORIDE 103 mmol/L (98-107); GFR AFRICAN-AMERICAN > 60; GLUCOSE,RANDOM 100 mg/dL (75-110); POTASSIUM 4.2 mmol/L (3.6-5.2); SODIUM 139 mmol/L (132-148); T4 11.8 ug/dL (5.5-11.0); THYROID STIMULATING HORMONE 0.33 mIU/L (0.46-4.68); TOTAL PROTEIN 7.6 g/dL (6.3-8.3)
[2017-06-16] MEDS: Enoxaparin 40 mg Syringe SC SCH (09:36)
--- NOTE | 2017-06-16 11:29 | CP.PCM.PN ---
Subjective - Date & Time of Evaluation Date of Evaluation: 06/16/17 Time of Evaluation: 09:10 - Subjective Subjective: patient seen and examined Complaining of shortness of breath Less pain Denies fever chills Patient upset and mad about small things Objective - Vital Signs/Intake and Output Vital Signs (last 24 hours): Temp Pulse Resp BP Pulse Ox 97.9 F 97 H 20 153/84 H 95 06/16/17 08:00 06/16/17 08:20 06/16/17 08:00 06/16/17 09:33 06/16/17 08:00 Intake and Output: 06/16/17 06/16/17 06:59 18:59 Intake Total 950 Output Total 100 Balance 850 - Medications Medications: Current Medications Albuterol/Ipratropium (Duoneb 3 Mg/0.5 Mg (3 Ml) Ud) 3 ml INH RQ6 [facility] Last Admin: 06/16/17 08:02 Dose: Not Given Enoxaparin Sodium (Lovenox) 40 mg SC DAILY [facility] Last Admin: 06/16/17 09:36 Dose: 40 mg Furosemide (Lasix) 40 mg IVP DAILY [facility] Last Admin: 06/16/17 09:33 Dose: 40 mg Vancomycin/Sodium Chloride (Vancomycin 1 Gm/Ns 200 Ml) 1 gm in 200 mls @ 133 mls/hr IVPB Q12H [facility] Stop: 06/18/17 20:01 Last Admin: 06/16/17 07:05 Dose: 133 mls/hr Clindamycin Phosphate (Cleocin In Normal Saline) 600 mg in 50 mls @ 100 mls/hr IVPB Q6H [facility] Last Admin: 06/16/17 09:36 Dose: 100 mls/hr Piperacillin Sod/Tazobactam Sod (Zosyn 4.5 Gm Iv Premix) 4.5 gm in 100 mls @ 100 mls/hr IVPB Q8H [facility] Last Admin: 06/16/17 10:25 Dose: 100 mls/hr Losartan Potassium (Cozaar) 50 mg PO DAILY [facility] Last Admin: 06/16/17 09:32 Dose: 50 mg Methimazole (Tapazole) 10 mg PO BID [facility] Last Admin: 06/16/17 09:32 Dose: 10 mg Metoprolol Tartrate (Lopressor) 12.5 mg PO BID [facility] Last Admin: 06/16/17 09:32 Dose: 12.5 mg Montelukast Sodium (Singulair) 10 mg PO HS [facility] Last Admin: 06/15/17 21:22 Dose: 10 mg Oxycodone/Acetaminophen (Percocet 5/325 Mg Tab) 1 tab PO Q6H PRN PRN Reason: Pain, severe (8-10) Stop: 06/16/17 16:06 Last Admin: 06/16/17 05:35 Dose: 1 tab Pantoprazole Sodium (Protonix Inj) 40 mg IVP DAILY [facility] Last Admin: 06/16/17 09:32 Dose: 40 mg - Labs Labs: 06/15/17 09:17 06/16/17 07:49 PT 15.2 SECONDS (9.7-12.2) H 06/13/17 13:18 INR 1.3 06/13/17 13:18 APTT 35 SECONDS (21-34) H 06/13/17 13:18 - Head Exam Head Exam: ATRAUMATIC, NORMOCEPHALIC - Eye Exam Eye Exam: Normal appearance - ENT Exam ENT Exam: Mucous Membranes Moist - Respiratory Exam Respiratory Exam: Decreased Breath Sounds - Cardiovascular Exam Cardiovascular Exam: REGULAR RHYTHM - GI/Abdominal Exam GI & Abdominal Exam: Soft, Normal Bowel Sounds - Extremities Exam Extremities Exam: Pedal Edema - Neurological Exam Neurological Exam: Alert, Oriented x3 Assessment and Plan (1) Chronic obstructive lung disease Assessment & Plan: continue nebulizer treatment Advair and spiriva Continue antibiotics per infectious disease Will need pulmonary function test Status: Acute (2) Sinusitis, acute maxillary Status: Acute
--- NOTE | 2017-06-16 15:56 | RAD ---
PROCEDURE: CHEST RADIOGRAPH, 1 VIEW HISTORY: verify right PICC COMPARISON: 06/13/2017. FINDINGS: The right PICC line terminates at the cavoatrial junction. LUNGS: There is redemonstration of severe pulmonary venous congestion and mild interstitial pulmonary edema. There is linear atelectasis/ scarring in the right mid lung. There is airspace disease in the right lower lobe. PLEURA: No pneumothorax or pleural fluid seen. CARDIOVASCULAR: Again seen is severe cardiomegaly PICC OSSEOUS STRUCTURES: No significant abnormalities. VISUALIZED UPPER ABDOMEN: Normal. OTHER FINDINGS: None. IMPRESSION: Right PICC line terminates at the cavoatrial junction. Airspace disease in the right lower lobe may represent atelectasis or pneumonia. Follow-up is advised. No change in severe pulmonary venous congestion, interstitial edema and severe cardiomegaly.
[2017-06-16] MEDS ORDERED: Oxycodone/Acetaminophen 5/325 mg Tab PO ONE (18:44)
--- NOTE | 2017-06-16 19:03 | CP.PCM.PN ---
Subjective - Date & Time of Evaluation Date of Evaluation: 06/16/17 Time of Evaluation: 11:00 - Subjective Subjective: clinically same Objective - Vital Signs/Intake and Output Vital Signs (last 24 hours): Temp Pulse Resp BP Pulse Ox 97.8 F 93 H 18 149/95 H 95 06/16/17 15:10 06/16/17 15:10 06/16/17 15:10 06/16/17 15:10 06/16/17 15:10 Intake and Output: 06/16/17 06/17/17 18:59 06:59 Intake Total 680 Output Total 1550 Balance -870 - Medications Medications: Current Medications Albuterol/Ipratropium (Duoneb 3 Mg/0.5 Mg (3 Ml) Ud) 3 ml INH RQ6 [facility] Last Admin: 06/16/17 14:20 Dose: Not Given Enoxaparin Sodium (Lovenox) 40 mg SC DAILY [facility] Last Admin: 06/16/17 09:36 Dose: 40 mg Furosemide (Lasix) 40 mg IVP DAILY [facility] Last Admin: 06/16/17 09:33 Dose: 40 mg Vancomycin/Sodium Chloride (Vancomycin 1 Gm/Ns 200 Ml) 1 gm in 200 mls @ 133 mls/hr IVPB Q12H [facility] Stop: 06/18/17 20:01 Last Admin: 06/16/17 07:05 Dose: 133 mls/hr Clindamycin Phosphate (Cleocin In Normal Saline) 600 mg in 50 mls @ 100 mls/hr IVPB Q6H [facility] Last Admin: 06/16/17 13:51 Dose: 100 mls/hr Piperacillin Sod/Tazobactam Sod (Zosyn 4.5 Gm Iv Premix) 4.5 gm in 100 mls @ 100 mls/hr IVPB Q8H [facility] Last Admin: 06/16/17 18:19 Dose: 100 mls/hr Losartan Potassium (Cozaar) 50 mg PO DAILY [facility] Last Admin: 06/16/17 09:32 Dose: 50 mg Methimazole (Tapazole) 10 mg PO BID [facility] Last Admin: 06/16/17 18:20 Dose: 10 mg Metoprolol Tartrate (Lopressor) 12.5 mg PO BID [facility] Last Admin: 06/16/17 18:24 Dose: 12.5 mg Montelukast Sodium (Singulair) 10 mg PO HS [facility] Last Admin: 06/15/17 21:22 Dose: 10 mg Pantoprazole Sodium (Protonix Inj) 40 mg IVP DAILY [facility] Last Admin: 06/16/17 09:32 Dose: 40 mg Fluticasone/Salmeterol (Advair Diskus 250/50) 1 puff INH RQ12 [facility] Tiotropium [place] (Spiriva) 18 mcg INH RQ24 [facility] Tiotropium [place] (Spiriva Inhalation Handihaler Device) 1 inhaler INH ONCE ONE Stop: 06/16/17 20:01 - Labs Labs: 06/15/17 09:17 06/16/17 07:49 PT 15.2 SECONDS (9.7-12.2) H 06/13/17 13:18 INR 1.3 06/13/17 13:18 APTT 35 SECONDS (21-34) H 06/13/17 13:18 - Constitutional Appears: Well - Head Exam Head Exam: ATRAUMATIC, NORMAL INSPECTION, NORMOCEPHALIC - Eye Exam Eye Exam: EOMI, Normal appearance, PERRL Pupil Exam: NORMAL ACCOMODATION, PERRL - ENT Exam ENT Exam: Mucous Membranes Moist, Normal Exam - Neck Exam Neck Exam: Full ROM, Normal Inspection. absent: Lymphadenopathy - Respiratory Exam Respiratory Exam: Decreased Breath Sounds - Cardiovascular Exam Cardiovascular Exam: REGULAR RHYTHM, +S1, +S2 - GI/Abdominal Exam GI & Abdominal Exam: Soft, Diminished Bowel Sounds - Rectal Exam Rectal Exam: Deferred
--- NOTE | 2017-06-16 19:30 | PN ---
ENDOCRINOLOGY FOLLOWUP NOTE LOCATION: Room 669. SUBJECTIVE: This is a 62-year-old male with recent acute maxillary sinusitis and underlying osteomyelitis, currently receiving IV antibiotics and is also being followed closely for recent onset of hyperthyroidism noted both clinically and biochemically with supervening tachycardia as noted. He has since then improved clinically and biochemically over the last few days as noted and a repeat thyroid studies showed a T4 of 11.8 mcg/dL with a TSH of 0.33 with initial level yesterday of 0.17. The repeat chemistry shows a BUN of 16, sodium 139, potassium 4.2, chloride 103, CO2 of 29, glucose 100, and creatinine 1.0. PLAN: So, at this time, we will continue the modified Tapazole medications given at the higher dose of 10 mg p.o. b.i.d. after meals as ordered. The implications of this thyroid condition and the need for medical therapy was explained in detail to the patient at bedside and also the need for outpatient followup with his primary physician, Dr. Stephen, has to be undertaken and the patient promised to follow with him as he did not do so in the last year or so. Riri Yoon MD
--- NOTE | 2017-06-16 22:11 | CP.PCM.PN ---
Subjective - Date & Time of Evaluation Date of Evaluation: 06/16/17 Time of Evaluation: 22:11 - Subjective Subjective: AFEBRILE LESS SHORT OF BREATH. C/O LESS PAIN BEHIND THE EYE /EAR RT SIDE DENIES VISUAL PROBLEMS STILL C/O PRESSURE RT MAXILLARY SINUS. LABS REVIEWED.. Objective - Vital Signs/Intake and Output Vital Signs (last 24 hours): Temp Pulse Resp BP Pulse Ox 97.8 F 93 H 18 149/95 H 95 06/16/17 15:10 06/16/17 15:10 06/16/17 15:10 06/16/17 15:10 06/16/17 15:10 Intake and Output: 06/16/17 06/17/17 18:59 06:59 Intake Total 680 Output Total 1550 Balance -870 - Medications Medications: Current Medications Albuterol/Ipratropium (Duoneb 3 Mg/0.5 Mg (3 Ml) Ud) 3 ml INH RQ6 [facility] Last Admin: 06/16/17 20:30 Dose: 3 ml Enoxaparin Sodium (Lovenox) 40 mg SC DAILY [facility] Last Admin: 06/16/17 09:36 Dose: 40 mg Furosemide (Lasix) 40 mg IVP DAILY [facility] Last Admin: 06/16/17 09:33 Dose: 40 mg Vancomycin/Sodium Chloride (Vancomycin 1 Gm/Ns 200 Ml) 1 gm in 200 mls @ 133 mls/hr IVPB Q12H [facility] Stop: 06/18/17 20:01 Last Admin: 06/16/17 20:00 Dose: 133 mls/hr Clindamycin Phosphate (Cleocin In Normal Saline) 600 mg in 50 mls @ 100 mls/hr IVPB Q6H [facility] Last Admin: 06/16/17 19:58 Dose: 100 mls/hr Piperacillin Sod/Tazobactam Sod (Zosyn 4.5 Gm Iv Premix) 4.5 gm in 100 mls @ 100 mls/hr IVPB Q8H [facility] Last Admin: 06/16/17 18:19 Dose: 100 mls/hr Losartan Potassium (Cozaar) 50 mg PO DAILY [facility] Last Admin: 06/16/17 09:32 Dose: 50 mg Methimazole (Tapazole) 10 mg PO BID [facility] Last Admin: 06/16/17 18:20 Dose: 10 mg Metoprolol Tartrate (Lopressor) 12.5 mg PO BID [facility] Last Admin: 06/16/17 18:24 Dose: 12.5 mg Montelukast Sodium (Singulair) 10 mg PO HS [facility] Last Admin: 06/15/17 21:22 Dose: 10 mg Pantoprazole Sodium (Protonix Inj) 40 mg IVP DAILY [facility] Last Admin: 06/16/17 09:32 Dose: 40 mg Fluticasone/Salmeterol (Advair Diskus 250/50) 1 puff INH RQ12 [facility] Tiotropium [place] (Spiriva) 18 mcg INH RQ24 [facility] - Labs Labs: 06/15/17 09:17 06/16/17 07:49 PT 15.2 SECONDS (9.7-12.2) H 06/13/17 13:18 INR 1.3 06/13/17 13:18 APTT 35 SECONDS (21-34) H 06/13/17 13:18 - Constitutional Appears: No Acute Distress - Head Exam Head Exam: NORMAL INSPECTION - Eye Exam Eye Exam: EOMI, PERRL - ENT Exam ENT Exam: Normal Oropharynx - Neck Exam Neck Exam: Normal Inspection. absent: Meningismus - Respiratory Exam Respiratory Exam: Decreased Breath Sounds - Cardiovascular Exam Cardiovascular Exam: REGULAR RHYTHM, +S1, +S2 - GI/Abdominal Exam GI & Abdominal Exam: Soft, Normal Bowel Sounds - Extremities Exam Extremities Exam: absent: Calf Tenderness, Pedal Edema - Neurological Exam Neurological Exam: Awake, CN II-XII Intact, Oriented x3 - Psychiatric Exam Psychiatric exam: Normal Mood - Skin Skin Exam: Normal Color, Warm Assessment and Plan (1) Sinusitis, acute maxillary Assessment & Plan: ON iv ZOSYN 4.5 G EVERY 8 HOURLY .06/13/17. CONTINUE iv VANCOMYCIN 1 G EVERY 12 HOURLY FOR STAPH AND MRSA COVERAGE.06/13/17 CONTINUE iv CLEOCIN 600 MG iv PIGGYBACK EVERY 6 HOURLY 06/13/17. F/U VANCO TROUGH LEVEL PRIOR TO FOURTH DOSE AND MAINTAIN BETWEEN 10 AND 20. PT HAS OSTEONECROSIS AND ACUTE ON CHRONIC OSTEOMYELITIS RIGHT MAXILLA. WILL NEED ENT EVALUATON R/O FUNGAL SINUSITUS. NEED ASPIRATE FOR DIAGNOSTIC/THERAPEUTIC REASONS TO DIRECT TREATMENT. CASE DISCUSSED WITH MOTORCOACH DRIVER MR DEAN. Status: Acute (2) Abnormal CT scan, sinus Status: Acute (3) Dental abscess Assessment & Plan: PATIENT ALSO HAS MULTIPLE DENTAL APICAL ABSCESSES. WILL NEED MAXILLO FASCIAL CONSULT . DISCUSSED WITH MOTORCOACH DRIVER MR DEAN. Status: Acute (4) Hypertension Status: Acute (5) Chronic obstructive lung disease Assessment & Plan: PER PULMONARY ' PULMONARY TOILET. Status: Acute
--- NOTE | 2017-06-17 00:05 | CARD ---
APPROVED REPORT EXAM: Two-dimensional and M-mode echocardiogram with Doppler and color Doppler. Other Information Quality : PoorRhythm : NSR INDICATION Congestive Heart Failure RISK FACTORS Hypertension 2D DIMENSIONS IVSd1.1 (0.7-1.1cm)LVDd5.8 (3.9-5.9cm) PWd1.1 (0.7-1.1cm)LVDs4.1 (2.5-4.0cm) FS (%) 28.1 %LVEF (%)53.7 (>50%) M-Mode DIMENSIONS Left Atrium (MM)5.77 (2.5-4.0cm)Aortic Root3.80 (2.2-3.7cm) Aortic Cusp Exc.2.69 (1.5-2.0cm) Mitral Valve MV E Kgwtsmqh750.3cm/sMV A Ryfepedt36.9cm/sE/A ratio1.3 TDI E/Lateral E'0.0E/Medial E'0.0 Tricuspid Valve TR Peak [id number]/sTR Peak [id number] LEFT VENTRICLE The left ventricle is normal size. There is borderline concentric left ventricular hypertrophy. Left ventricle systolic function is normal. The Ejection Fraction is 60-65%. Suboptimal not able to comment on the segmental wall motion. Probably normal diastolic function There is no ventricular septal defect visualized. RIGHT VENTRICLE Not well-visualized No well-visualized ATRIA The left atrium is moderately dilated. The right atrium size is normal. AORTIC VALVE The aortic valve is mildly sclerotic. The aortic valve is tri-cuspid. No aortic regurgitation is present. There is no aortic valvular stenosis. MITRAL VALVE Not visualized well Probably no prolapse Mitral regurgitation is present, however quantification is not feasible, possibly mild TRICUSPID VALVE The tricuspid valve is not well visualized. Positive tricuspid regurgitation, not able to quantify. Severe pulmonary hypertension with a right ventricular systolic pressure of 60 mmHg PULMONIC VALVE The pulmonic valve is not well visualized. Not visualized GREAT VESSELS The aortic root is normal in size. The ascending aorta is normal in size. The IVC is dilated. <Conclusion> Suboptimal with a poor acoustic window. Left ventricle systolic function is normal. The Ejection Fraction is 60-65%. Suboptimal not able to comment on the segmental wall motion. Mitral regurgitation is present, however quantification is not feasible, possibly mild Severe pulmonary hypertension with a right ventricular systolic pressure of 60 mmHg
[2017-06-17] MEDS: Albuterol-Ipratrop 3 mg / 0.5 (3 ml) UD INH SCH ×3 (01:21→19:47)
[2017-06-17] MEDS: Piperacill/Tazo 4.5gm in Dex 4.5 GM/100 ML BAG IVPB SCH ×3 (01:42→18:06)
[2017-06-17] MEDS: Clindamycin 600mg/50ml NS 600 MG/50 ML BAG IVPB SCH ×4 (01:42→19:29)
[2017-06-17] MEDS: Oxycodone/Acetaminophen 5/325 mg Tab PO PRN ×4 (02:40→21:42)
[2017-06-17 06:53] LABS: ALKALINE PHOSPHATASE 53 U/L (38-126); ALT/SGPT 49 U/L (21-72); AST/SGOT 40 U/L (17-59); BILIRUBIN,TOTAL 0.5 mg/dL (0.2-1.3); BLOOD UREA NITROGEN 15 mg/dL (9-20); CALCIUM 8.1 mg/dl (8.6-10.4); CARBON DIOXIDE 33 mmol/L (22-30); CHLORIDE 100 mmol/L (98-107); GFR AFRICAN-AMERICAN > 60; GLUCOSE,RANDOM 92 mg/dL (75-110); POTASSIUM 3.8 mmol/L (3.6-5.2); SODIUM 137 mmol/L (132-148); TOTAL PROTEIN 7.2 g/dL (6.3-8.3)
[2017-06-17 06:56] LABS: ALB/GLOB RATIO 0.8 (1.0-2.1)
[2017-06-17] MEDS: Vancomycin 1 gm/NS 200 ml 1 GM/200 ML BAG IVPB SCH (07:01)
[2017-06-17 07:02] LABS: T4 10.7 ug/dL (5.5-11.0)
[2017-06-17 07:15] LABS: THYROID STIMULATING HORMONE 0.54 mIU/L (0.46-4.68)
[2017-06-17] MEDS: Fluticasone-Salmeterol 250-50mcg Diskus INH SCH ×2 (08:02→19:47)
[2017-06-17] MEDS: Enoxaparin 40 mg Syringe SC SCH (10:46)
--- NOTE | 2017-06-17 11:29 | CARD ---
APPROVED REPORT EKG Measurement Heart [id number] [place] 120P [id number] <Conclusion> Sinus tachycardia Septal infarct, age undetermined Abnormal ECG
[2017-06-17 14:36] LABS: BASO # 0.1 K/uL (0.0-0.2); BASO % 0.9 % (0.0-2.0); EOS # 0.1 K/uL (0.0-0.7); EOS % 1.1 % (0.0-4.0); HEMATOCRIT 36.9 % (35.0-51.0); LYMPH # 1.4 K/uL (1.0-4.3); LYMPH % 24.4 % (20.0-40.0); MEAN CELL VOLUME 88.9 fL (80.0-94.0); MEAN CORPUSCULAR HEMOGLOBIN 29.6 pg (27.0-31.0); MEAN CORPUSCULAR HGB CONC 33.3 g/dL (33.0-37.0); MEAN PLATELET VOLUME 8.9 fL (7.2-11.7); MONO # 0.6 K/uL (0.0-0.8); MONO % 10.3 % (0.0-10.0); WHITE BLOOD COUNT 5.9 K/uL (4.8-10.8)
--- NOTE | 2017-06-17 17:29 | PN ---
DATE: ENDOCRINOLOGY FOLLOWUP NOTE LOCATION: Room 669. SUBJECTIVE: This is a 62-year-old male with recent acute maxillary sinusitis with underlying osteomyelitis, currently receiving IV antibiotic management and is also being followed closely for recent evaluation of subclinical hyperthyroidism as noted above. His latest chemistry shows a BUN of 15, sodium 137, potassium 3.8, chloride 100, CO2 of 33, glucose 92 and creatinine 0.8. His hemoglobin A1c is 5.1%, so the mild transient hyperglycemic levels are only temporary and . His latest thyroid studies shows a T4 of 10.7 with a TSH of 0.54 and a free T4 of 1.35. So at this time, we will continue the same modified Tapazole medication given as 10 mg p.o. b.i.d. after meals as ordered. We will titrate incrementally as indicated to optimize metabolic control. We will also obtain serial thyroid studies and adjust his dose regimen accordingly. The eventual home discharge plan of care has been discussed with the patient at the bedside and he understands the need for ongoing followup, especially with his primary care physician, who he has not seen for a year or so, till the present time. We will follow. Riri Yoon MD
--- NOTE | 2017-06-17 18:38 | CP.PCM.PN ---
Subjective - Date & Time of Evaluation Date of Evaluation: 06/17/17 Time of Evaluation: 12:00 - Subjective Subjective: clinically same Objective - Vital Signs/Intake and Output Vital Signs (last 24 hours): Temp Pulse Resp BP Pulse Ox 97.9 F 102 H 20 138/92 H 94 L 06/17/17 15:09 06/17/17 15:09 06/17/17 15:09 06/17/17 15:09 06/17/17 15:09 Intake and Output: 06/17/17 06/17/17 06:59 18:59 Intake Total 700 Balance 700 - Medications Medications: Current Medications Albuterol/Ipratropium (Duoneb 3 Mg/0.5 Mg (3 Ml) Ud) 3 ml INH RQ6 [facility] Last Admin: 06/17/17 08:02 Dose: Not Given Enoxaparin Sodium (Lovenox) 40 mg SC DAILY [facility] Last Admin: 06/17/17 10:46 Dose: 40 mg Furosemide (Lasix) 40 mg IVP DAILY [facility] Last Admin: 06/17/17 10:40 Dose: 40 mg Clindamycin Phosphate (Cleocin In Normal Saline) 600 mg in 50 mls @ 100 mls/hr IVPB Q6H [facility] Last Admin: 06/17/17 13:52 Dose: 100 mls/hr Piperacillin Sod/Tazobactam Sod (Zosyn 4.5 Gm Iv Premix) 4.5 gm in 100 mls @ 100 mls/hr IVPB Q8H [facility] Last Admin: 06/17/17 18:06 Dose: 100 mls/hr Vancomycin HCl 1,150 mg/ (Sodium Chloride) 250 mls @ 100 mls/hr IVPB Q12H [facility] Losartan Potassium (Cozaar) 50 mg PO DAILY [facility] Last Admin: 06/17/17 10:44 Dose: 50 mg Methimazole (Tapazole) 10 mg PO BID [facility] Last Admin: 06/17/17 18:05 Dose: 10 mg Metoprolol Tartrate (Lopressor) 12.5 mg PO BID [facility] Last Admin: 06/17/17 18:06 Dose: 12.5 mg Montelukast Sodium (Singulair) 10 mg PO HS [facility] Last Admin: 06/16/17 23:16 Dose: 10 mg Oxycodone/Acetaminophen (Percocet 5/325 Mg Tab) 1 tab PO Q6H PRN PRN Reason: Pain, moderate (4-7) Stop: 06/20/17 02:29 Last Admin: 06/17/17 15:40 Dose: 1 tab Pantoprazole Sodium (Protonix Inj) 40 mg IVP DAILY [facility] Last Admin: 06/17/17 10:40 Dose: 40 mg Fluticasone/Salmeterol (Advair Diskus 250/50) 1 puff INH RQ12 [facility] Last Admin: 06/17/17 08:02 Dose: Not Given Tiotropium [place] (Spiriva) 18 mcg INH RQ24 [facility] - Labs Labs: 06/17/17 14:22 06/17/17 06:18 PT 15.2 SECONDS (9.7-12.2) H 06/13/17 13:18 INR 1.3 06/13/17 13:18 APTT 35 SECONDS (21-34) H 06/13/17 13:18 - Constitutional Appears: Well - Head Exam Head Exam: ATRAUMATIC, NORMAL INSPECTION, NORMOCEPHALIC - Eye Exam Eye Exam: EOMI, Normal appearance, PERRL Pupil Exam: NORMAL ACCOMODATION, PERRL - ENT Exam ENT Exam: Mucous Membranes Moist, Normal Exam - Neck Exam Neck Exam: Full ROM, Normal Inspection. absent: Lymphadenopathy - Respiratory Exam Respiratory Exam: Decreased Breath Sounds - Cardiovascular Exam Cardiovascular Exam: REGULAR RHYTHM, +S1, +S2 - GI/Abdominal Exam GI & Abdominal Exam: Soft, Diminished Bowel Sounds - Rectal Exam Rectal Exam: Deferred
--- NOTE | 2017-06-17 20:55 | CP.PCM.PN ---
Subjective - Date & Time of Evaluation Date of Evaluation: 06/17/17 Time of Evaluation: 20:51 - Subjective Subjective: afebrile, No new complaints. New History obtained from the patient. 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 PATIENT FOR MRI AND BONE SCAN OF SINUSES RECOMMENDED BY ent. oN iv ANTIBIOTICS. Objective - Vital Signs/Intake and Output Vital Signs (last 24 hours): Temp Pulse Resp BP Pulse Ox 97.9 F 94 H 20 138/92 H 94 L 06/17/17 15:09 06/17/17 16:00 06/17/17 15:09 06/17/17 15:09 06/17/17 15:09 Intake and Output: 06/17/17 06/18/17 18:59 06:59 Intake Total 700 Balance 700 - Medications Medications: Current Medications Albuterol/Ipratropium (Duoneb 3 Mg/0.5 Mg (3 Ml) Ud) 3 ml INH RQ6 [facility] Last Admin: 06/17/17 19:47 Dose: Not Given Enoxaparin Sodium (Lovenox) 40 mg SC DAILY [facility] Last Admin: 06/17/17 10:46 Dose: 40 mg Furosemide (Lasix) 40 mg IVP DAILY [facility] Last Admin: 06/17/17 10:40 Dose: 40 mg Clindamycin Phosphate (Cleocin In Normal Saline) 600 mg in 50 mls @ 100 mls/hr IVPB Q6H [facility] Last Admin: 06/17/17 19:29 Dose: 100 mls/hr Piperacillin Sod/Tazobactam Sod (Zosyn 4.5 Gm Iv Premix) 4.5 gm in 100 mls @ 100 mls/hr IVPB Q8H [facility] Last Admin: 06/17/17 18:06 Dose: 100 mls/hr Vancomycin HCl 1,150 mg/ (Sodium Chloride) 250 mls @ 100 mls/hr IVPB Q12H [facility] Lactobacillus Acidophilus (Bacid Acidophilus) 1 cap PO BID [facility] Losartan Potassium (Cozaar) 50 mg PO DAILY [facility] Last Admin: 06/17/17 10:44 Dose: 50 mg Methimazole (Tapazole) 10 mg PO BID [facility] Last Admin: 06/17/17 18:05 Dose: 10 mg Metoprolol Tartrate (Lopressor) 12.5 mg PO BID [facility] Last Admin: 06/17/17 18:06 Dose: 12.5 mg Montelukast Sodium (Singulair) 10 mg PO HS [facility] Last Admin: 06/16/17 23:16 Dose: 10 mg Oxycodone/Acetaminophen (Percocet 5/325 Mg Tab) 1 tab PO Q6H PRN PRN Reason: Pain, moderate (4-7) Stop: 06/20/17 02:29 Last Admin: 06/17/17 15:40 Dose: 1 tab Pantoprazole Sodium (Protonix Inj) 40 mg IVP DAILY [facility] Last Admin: 06/17/17 10:40 Dose: 40 mg Fluticasone/Salmeterol (Advair Diskus 250/50) 1 puff INH RQ12 [facility] Last Admin: 06/17/17 19:47 Dose: Not Given Tiotropium [place] (Spiriva) 18 mcg INH RQ24 [facility] - Labs Labs: 06/17/17 14:22 06/17/17 06:18 PT 15.2 SECONDS (9.7-12.2) H 06/13/17 13:18 INR 1.3 06/13/17 13:18 APTT 35 SECONDS (21-34) H 06/13/17 13:18 - Constitutional Appears: No Acute Distress - Head Exam Head Exam: NORMAL INSPECTION - Eye Exam Eye Exam: EOMI, PERRL - ENT Exam ENT Exam: Normal Oropharynx - Neck Exam Neck Exam: Normal Inspection - Respiratory Exam Respiratory Exam: Clear to Ausculation Bilateral, NORMAL BREATHING PATTERN - Cardiovascular Exam Cardiovascular Exam: Tachycardia (IMPROVING HEART RATE 94/M.), REGULAR RHYTHM, + S1, +S2 - GI/Abdominal Exam GI & Abdominal Exam: Soft, Normal Bowel Sounds. absent: Tenderness - Extremities Exam Extremities Exam: absent: Calf Tenderness, Pedal Edema - Neurological Exam Neurological Exam: Awake, CN II-XII Intact, Oriented x3 - Psychiatric Exam Psychiatric exam: Normal Mood - Skin Skin Exam: Normal Color, Warm Assessment and Plan (1) Sinusitis, acute maxillary Assessment & Plan: ON iv ZOSYN 4.5 G EVERY 8 HOURLY .06/13/17. CONTINUE iv VANCOMYCIN 1 G EVERY 12 HOURLY FOR STAPH AND MRSA COVERAGE.06/13/17 CONTINUE iv CLEOCIN 600 MG iv PIGGYBACK EVERY 6 HOURLY 06/13/17. Vanco trough 9.7 /. 23.4 peak low iNCREASE vANCO DOSE TO 1150 MILLIGRAMS EVERY 12 HOURLY.06/17/17. F/U VANCO TROUGH LEVEL PRIOR TO FOURTH DOSE AND MAINTAIN BETWEEN 10 AND 20. FOLLOW-UP RENAL FUNCTIONS CLOSELY. CASE DISCUSSED WITH WEB SERVICES PROFESSIONAL MR. Johnson PATIENT FOR MRI /BONE SCAN OF THE SINUSES. Status: Acute (2) Abnormal CT scan, sinus Assessment & Plan: PT HAS OSTEONECROSIS AND ACUTE ON CHRONIC OSTEOMYELITIS RIGHT MAXILLA. WILL NEED ENT EVALUATON R/O FUNGAL SINUSITUS. NEED ASPIRATE FOR DIAGNOSTIC/THERAPEUTIC REASONS TO DIRECT TREATMENT to discuss w ENT. AWAITING MRI/ AND BONE SCAN RIGHT MAXILLOFACIAL Status: Acute (3) Dental abscess Status: Acute (4) Hypertension Status: Acute (5) Chronic obstructive lung disease Assessment & Plan: PER PULMONARY. Status: Acute
[2017-06-17] MEDS: Lactobacillus Acidophilus 500 MU Cap PO SCH (21:37)
--- NOTE | 2017-06-17 23:43 | CP.PCM.PN ---
Subjective - Date & Time of Evaluation Date of Evaluation: 06/17/17 Time of Evaluation: 15:20 - Subjective Subjective: Patient's HR improving Objective - Vital Signs/Intake and Output Vital Signs (last 24 hours): Temp Pulse Resp BP Pulse Ox 97.9 F 94 H 20 138/92 H 94 L 06/17/17 15:09 06/17/17 16:00 06/17/17 15:09 06/17/17 15:09 06/17/17 15:09 Intake and Output: 06/17/17 06/18/17 18:59 06:59 Intake Total 700 880 Output Total 900 Balance 700 -20 - Medications Medications: Current Medications Albuterol/Ipratropium (Duoneb 3 Mg/0.5 Mg (3 Ml) Ud) 3 ml INH RQ6 [facility] Last Admin: 06/17/17 19:47 Dose: Not Given Enoxaparin Sodium (Lovenox) 40 mg SC DAILY [facility] Last Admin: 06/17/17 10:46 Dose: 40 mg Furosemide (Lasix) 40 mg IVP DAILY [facility] Last Admin: 06/17/17 10:40 Dose: 40 mg Clindamycin Phosphate (Cleocin In Normal Saline) 600 mg in 50 mls @ 100 mls/hr IVPB Q6H [facility] Last Admin: 06/17/17 19:29 Dose: 100 mls/hr Piperacillin Sod/Tazobactam Sod (Zosyn 4.5 Gm Iv Premix) 4.5 gm in 100 mls @ 100 mls/hr IVPB Q8H [facility] Last Admin: 06/17/17 18:06 Dose: 100 mls/hr Vancomycin HCl 1,150 mg/ (Sodium Chloride) 250 mls @ 100 mls/hr IVPB Q12H [facility] Last Admin: 06/17/17 21:00 Dose: 100 mls/hr Lactobacillus Acidophilus (Bacid Acidophilus) 1 cap PO BID [facility] Last Admin: 06/17/17 21:37 Dose: 1 cap Losartan Potassium (Cozaar) 50 mg PO DAILY [facility] Last Admin: 06/17/17 10:44 Dose: 50 mg Methimazole (Tapazole) 10 mg PO BID [facility] Last Admin: 06/17/17 18:05 Dose: 10 mg Metoprolol Tartrate (Lopressor) 12.5 mg PO BID [facility] Last Admin: 06/17/17 18:06 Dose: 12.5 mg Montelukast Sodium (Singulair) 10 mg PO HS [facility] Last Admin: 06/17/17 21:37 Dose: 10 mg Oxycodone/Acetaminophen (Percocet 5/325 Mg Tab) 1 tab PO Q6H PRN PRN Reason: Pain, moderate (4-7) Stop: 06/20/17 02:29 Last Admin: 06/17/17 21:42 Dose: 1 tab Pantoprazole Sodium (Protonix Inj) 40 mg IVP DAILY [facility] Last Admin: 06/17/17 10:40 Dose: 40 mg Fluticasone/Salmeterol (Advair Diskus 250/50) 1 puff INH RQ12 [facility] Last Admin: 06/17/17 19:47 Dose: Not Given Tiotropium [place] (Spiriva) 18 mcg INH RQ24 [facility] - Labs Labs: 06/17/17 14:22 06/17/17 06:18 PT 15.2 SECONDS (9.7-12.2) H 06/13/17 13:18 INR 1.3 06/13/17 13:18 APTT 35 SECONDS (21-34) H 06/13/17 13:18
[2017-06-18] MEDS: Albuterol-Ipratrop 3 mg / 0.5 (3 ml) UD INH SCH ×4 (01:10→19:30)
[2017-06-18] MEDS: Clindamycin 600mg/50ml NS 600 MG/50 ML BAG IVPB SCH ×4 (02:36→19:09)
[2017-06-18] MEDS: Piperacill/Tazo 4.5gm in Dex 4.5 GM/100 ML BAG IVPB SCH ×3 (02:37→17:08)
[2017-06-18] MEDS: Oxycodone/Acetaminophen 5/325 mg Tab PO PRN ×2 (08:45→17:07)
[2017-06-18] MEDS: Enoxaparin 40 mg Syringe SC SCH (10:31)
[2017-06-18] MEDS: Lactobacillus Acidophilus 500 MU Cap PO SCH ×2 (10:31→17:07)
--- NOTE | 2017-06-18 10:58 | CP.PCM.PN ---
Subjective - Date & Time of Evaluation Date of Evaluation: 06/18/17 Time of Evaluation: 10:52 - Subjective Subjective: PGY-[address] Cross's service: Pt seen and examined at bedside. Nursing reports no acute events overnight. Patient NPO for NM Bone scan and MRI this AM. He is found relaxing comfortably in bed. Patient reports his congestion is much improved from admission. He states he is hearing better, breathing better, tolerating diet, and moving bowels without difficulty. Objective - Vital Signs/Intake and Output Vital Signs (last 24 hours): Temp Pulse Resp BP Pulse Ox 97 F L 94 H 20 135/83 94 L 06/18/17 07:00 06/18/17 08:00 06/18/17 07:00 06/18/17 10:29 06/18/17 07:00 Intake and Output: 06/18/17 06/18/17 06:59 18:59 Intake Total 1150 Output Total 1125 Balance 25 - Medications Medications: Current Medications Albuterol/Ipratropium (Duoneb 3 Mg/0.5 Mg (3 Ml) Ud) 3 ml INH RQ6 [facility] Last Admin: 06/18/17 01:10 Dose: Not Given Enoxaparin Sodium (Lovenox) 40 mg SC DAILY [facility] Last Admin: 06/18/17 10:31 Dose: 40 mg Furosemide (Lasix) 40 mg IVP DAILY [facility] Last Admin: 06/18/17 10:29 Dose: 40 mg Clindamycin Phosphate (Cleocin In Normal Saline) 600 mg in 50 mls @ 100 mls/hr IVPB Q6H [facility] Last Admin: 06/18/17 08:15 Dose: 100 mls/hr Piperacillin Sod/Tazobactam Sod (Zosyn 4.5 Gm Iv Premix) 4.5 gm in 100 mls @ 100 mls/hr IVPB Q8H [facility] Last Admin: 06/18/17 09:00 Dose: 100 mls/hr Vancomycin HCl 1,150 mg/ (Sodium Chloride) 250 mls @ 100 mls/hr IVPB Q12H [facility] Last Admin: 06/18/17 08:30 Dose: 100 mls/hr Lactobacillus Acidophilus (Bacid Acidophilus) 1 cap PO BID [facility] Last Admin: 06/18/17 10:31 Dose: 1 cap Losartan Potassium (Cozaar) 50 mg PO DAILY [facility] Last Admin: 06/18/17 10:30 Dose: 50 mg Methimazole (Tapazole) 10 mg PO BID [facility] Last Admin: 06/18/17 10:30 Dose: 10 mg Metoprolol Tartrate (Lopressor) 12.5 mg PO BID [facility] Last Admin: 06/18/17 10:30 Dose: 12.5 mg Montelukast Sodium (Singulair) 10 mg PO HS [facility] Last Admin: 06/17/17 21:37 Dose: 10 mg Oxycodone/Acetaminophen (Percocet 5/325 Mg Tab) 1 tab PO Q6H PRN PRN Reason: Pain, moderate (4-7) Stop: 06/20/17 02:29 Last Admin: 06/18/17 08:45 Dose: 1 tab Pantoprazole Sodium (Protonix Inj) 40 mg IVP DAILY [facility] Last Admin: 06/18/17 10:29 Dose: 40 mg Fluticasone/Salmeterol (Advair Diskus 250/50) 1 puff INH RQ12 [facility] Last Admin: 06/17/17 19:47 Dose: Not Given Tiotropium [place] (Spiriva) 18 mcg INH RQ24 [facility] - Labs Labs: 06/17/17 14:22 06/17/17 06:18 PT 15.2 SECONDS (9.7-12.2) H 06/13/17 13:18 INR 1.3 06/13/17 13:18 APTT 35 SECONDS (21-34) H 06/13/17 13:18 - Constitutional Appears: Non-toxic, No Acute Distress - Head Exam Head Exam: ATRAUMATIC, NORMAL INSPECTION - Eye Exam Eye Exam: EOMI, Normal appearance. absent: Scleral icterus Pupil Exam: PERRL - ENT Exam ENT Exam: Mucous Membranes Moist Additional comments: No erythema/edema/TTP - Neck Exam Additional comments: Due to body habitus, JVD difficult to appreciate - Respiratory Exam Respiratory Exam: Clear to Ausculation Bilateral, NORMAL BREATHING PATTERN - Cardiovascular Exam Cardiovascular Exam: REGULAR RHYTHM, +S1, +S2 - GI/Abdominal Exam GI & Abdominal Exam: Soft, Normal Bowel Sounds. absent: Tenderness Additional comments: Large body habitus - Extremities Exam Extremities Exam: Normal Inspection. absent: Pedal Edema - Back Exam Back Exam: absent: CVA tenderness (L), CVA tenderness (R) - Neurological Exam Neurological Exam: Alert, Awake, Oriented x3 - Psychiatric Exam Psychiatric exam: Normal Affect, Normal Mood - Skin Skin Exam: Normal Color, Warm Assessment and Plan - Assessment and Plan (Free Text) Plan: Acute on chronic osteomyelitis - right maxilla Admit to med surg, transferred tele due to tachycardia (DEALER RELATIONSHIP MANAGER 06/13) Right sided facial pain for ~ one month Maxillofacial CT (06/13/17): Right maxillary atelectatics sinus syndrome w concerns of acute/chronic osteomyelitis in right maxilla. Aerosolized secretions in right maxillary sinus may represent superimposed acute sinusitis in appropriate clinical setting. multiple periapical dental abscesses (see full report). f/u Bone scan/MRI ID Dr. Almendarez, help appreciated Zosyn 4.5gm IV Q8H (start 06/13/17) Vancomycin 1gram Q12H (start 06/13/17) Cleocin 600mg IVPB Q6H (start 06/13/17) - one dose Ceftriaxone in ED (06/12/17) Lactobacillus Acidophillus 1 cap PO BID ENT consult, Dr. Kohler - Recommend MRI/Bone scan of sinuses - IV ABX per ID Blood cultures negative x 4 days Strep culture negative Hyperthyroidism TSH improving over course Dr. 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 Aerosolized secretions in right maxillary sinus may represent superimposed acute sinusitis in appropriate clinical setting. multiple periapical dental abscesses (see full report). 06/18: Spoke with NADEGE Thrasher. He spoke with Dr. Kohler who stated that he does not believe pt has dental abscesses. 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 Waite, help appreciated - Will see only as outpatient, will referral at discharge COPD Dr. Francisco, Pulm nursing consultant - continue nebs, antibiotics for sinusitis, pulm toilet - Consider PFT as OPDX - Singulair 10mg PO HS - Advair 250/50 1 puff INH Q12H [facility] - Spiriva 18mcg INH Q24H [facility] HTN Well controlled Losartan 50mg PO Daily Metoprolol 12.5 mg PO BID Severe pulm HTN CXR (06/13/17): marked cardiomegaly. Pulm venous congestion. Mild lateral pleural thickening/fluid on right (see full report) - repeat 06/18/17: No change in pulm vascular congestion, intersitial edema, and severe cardiomegaly (see full report) ECHO (06/14/17): suboptimal with poor acoustic windows. LV systolic FXN normal. EF 60-65%. Unable to comment on wall motion due to suboptimal study. Mitral regurgitation present. Severe pulmonary hypertension > 60mmHG (see full report) Lasix 40mg IV Daily Elevated BG Transisent increase blood sugar over course - A1C: 5.1% Persistent Tachycardia; Resolved DEALER RELATIONSHIP MANAGER on 06/13/17 - Low TSH - hyperthyroidism most likely etiology (see above for plan) - Dr. Yoon consulted (Endo), Dr. Carson consulted for Cardio - CT angio negative for PE, D-dimer negative Prophylaxis Lovenox 40mg SC Daily Protonix 40mg IV daily [facility] PGY-2 All medical management by Dr. Cross
--- NOTE | 2017-06-18 12:22 | CP.PCM.PN ---
Subjective - Date & Time of Evaluation Date of Evaluation: 06/18/17 - Subjective Subjective: Pt seen and examined at bedside. Patient resting comfortably. Patient says he is feeling better and less short of breath. He denies any cough. Patient is eating and slept well last night. Patient denies any fevers, chills, chest pain , nausea, vomiting, abdominal pain or leg swelling. Objective - Vital Signs/Intake and Output Vital Signs (last 24 hours): Temp Pulse Resp BP Pulse Ox 97 F L 94 H 20 135/83 94 L 06/18/17 07:00 06/18/17 08:00 06/18/17 07:00 06/18/17 10:29 06/18/17 07:00 Intake and Output: 06/18/17 06/18/17 06:59 18:59 Intake Total 1150 Output Total 1125 Balance 25 - Medications Medications: Current Medications Albuterol/Ipratropium (Duoneb 3 Mg/0.5 Mg (3 Ml) Ud) 3 ml INH RQ6 [facility] Last Admin: 06/18/17 01:10 Dose: Not Given Enoxaparin Sodium (Lovenox) 40 mg SC DAILY [facility] Last Admin: 06/18/17 10:31 Dose: 40 mg Furosemide (Lasix) 40 mg IVP DAILY [facility] Last Admin: 06/18/17 10:29 Dose: 40 mg Clindamycin Phosphate (Cleocin In Normal Saline) 600 mg in 50 mls @ 100 mls/hr IVPB Q6H [facility] Last Admin: 06/18/17 08:15 Dose: 100 mls/hr Piperacillin Sod/Tazobactam Sod (Zosyn 4.5 Gm Iv Premix) 4.5 gm in 100 mls @ 100 mls/hr IVPB Q8H [facility] Last Admin: 06/18/17 09:00 Dose: 100 mls/hr Vancomycin HCl 1,150 mg/ (Sodium Chloride) 250 mls @ 100 mls/hr IVPB Q12H [facility] Last Admin: 06/18/17 08:30 Dose: 100 mls/hr Lactobacillus Acidophilus (Bacid Acidophilus) 1 cap PO BID [facility] Last Admin: 06/18/17 10:31 Dose: 1 cap Losartan Potassium (Cozaar) 50 mg PO DAILY [facility] Last Admin: 06/18/17 10:30 Dose: 50 mg Methimazole (Tapazole) 10 mg PO BID [facility] Last Admin: 06/18/17 10:30 Dose: 10 mg Metoprolol Tartrate (Lopressor) 12.5 mg PO BID [facility] Last Admin: 06/18/17 10:30 Dose: 12.5 mg Montelukast Sodium (Singulair) 10 mg PO HS [facility] Last Admin: 06/17/17 21:37 Dose: 10 mg Oxycodone/Acetaminophen (Percocet 5/325 Mg Tab) 1 tab PO Q6H PRN PRN Reason: Pain, moderate (4-7) Stop: 06/20/17 02:29 Last Admin: 06/18/17 08:45 Dose: 1 tab Pantoprazole Sodium (Protonix Inj) 40 mg IVP DAILY [facility] Last Admin: 06/18/17 10:29 Dose: 40 mg Fluticasone/Salmeterol (Advair Diskus 250/50) 1 puff INH RQ12 [facility] Last Admin: 06/17/17 19:47 Dose: Not Given Tiotropium [place] (Spiriva) 18 mcg INH RQ24 [facility] - Labs Labs: 06/17/17 14:22 06/17/17 06:18 PT 15.2 SECONDS (9.7-12.2) H 06/13/17 13:18 INR 1.3 06/13/17 13:18 APTT 35 SECONDS (21-34) H 06/13/17 13:18 Assessment and Plan (1) Chronic obstructive lung disease Assessment & Plan: Continue nebulizer treatments Advair and Spiriva continue antibiotics PFTs Status: Acute (2) Sinusitis, acute maxillary Status: Acute
--- NOTE | 2017-06-18 13:07 | CP.PCM.PN ---
Subjective - Date & Time of Evaluation Date of Evaluation: 06/18/17 Time of Evaluation: 13:07 - Subjective Subjective: AFEBRILE, fEELING BETTER. DENIES PAIN RIGHT MAXILLARY SINUS. MRI BRAIN;-P REPORT THREE-PHASE BONE [id number] REPORT. LABS REVIEWED. CASE DISCUSSED WITH BALL MILL MIXER DIANNE.. Objective - Vital Signs/Intake and Output Vital Signs (last 24 hours): Temp Pulse Resp BP Pulse Ox 97 F L 94 H 20 135/83 94 L 06/18/17 07:00 06/18/17 08:00 06/18/17 07:00 06/18/17 10:29 06/18/17 07:00 Intake and Output: 06/18/17 06/18/17 06:59 18:59 Intake Total 1150 Output Total 1125 Balance 25 - Medications Medications: Current Medications Albuterol/Ipratropium (Duoneb 3 Mg/0.5 Mg (3 Ml) Ud) 3 ml INH RQ6 [facility] Last Admin: 06/18/17 01:10 Dose: Not Given Enoxaparin Sodium (Lovenox) 40 mg SC DAILY [facility] Last Admin: 06/18/17 10:31 Dose: 40 mg Furosemide (Lasix) 40 mg IVP DAILY [facility] Last Admin: 06/18/17 10:29 Dose: 40 mg Clindamycin Phosphate (Cleocin In Normal Saline) 600 mg in 50 mls @ 100 mls/hr IVPB Q6H [facility] Last Admin: 06/18/17 08:15 Dose: 100 mls/hr Piperacillin Sod/Tazobactam Sod (Zosyn 4.5 Gm Iv Premix) 4.5 gm in 100 mls @ 100 mls/hr IVPB Q8H [facility] Last Admin: 06/18/17 09:00 Dose: 100 mls/hr Vancomycin HCl 1,150 mg/ (Sodium Chloride) 250 mls @ 100 mls/hr IVPB Q12H [facility] Last Admin: 06/18/17 08:30 Dose: 100 mls/hr Lactobacillus Acidophilus (Bacid Acidophilus) 1 cap PO BID [facility] Last Admin: 06/18/17 10:31 Dose: 1 cap Losartan Potassium (Cozaar) 50 mg PO DAILY [facility] Last Admin: 06/18/17 10:30 Dose: 50 mg Methimazole (Tapazole) 10 mg PO BID [facility] Last Admin: 06/18/17 10:30 Dose: 10 mg Metoprolol Tartrate (Lopressor) 12.5 mg PO BID [facility] Last Admin: 06/18/17 10:30 Dose: 12.5 mg Montelukast Sodium (Singulair) 10 mg PO HS [facility] Last Admin: 06/17/17 21:37 Dose: 10 mg Oxycodone/Acetaminophen (Percocet 5/325 Mg Tab) 1 tab PO Q6H PRN PRN Reason: Pain, moderate (4-7) Stop: 06/20/17 02:29 Last Admin: 06/18/17 08:45 Dose: 1 tab Pantoprazole Sodium (Protonix Inj) 40 mg IVP DAILY [facility] Last Admin: 06/18/17 10:29 Dose: 40 mg Fluticasone/Salmeterol (Advair Diskus 250/50) 1 puff INH RQ12 [facility] Last Admin: 06/17/17 19:47 Dose: Not Given Tiotropium [place] (Spiriva) 18 mcg INH RQ24 [facility] - Labs Labs: 06/17/17 14:22 06/17/17 06:18 PT 15.2 SECONDS (9.7-12.2) H 06/13/17 13:18 INR 1.3 06/13/17 13:18 APTT 35 SECONDS (21-34) H 06/13/17 13:18 - Constitutional Appears: No Acute Distress - Head Exam Head Exam: NORMAL INSPECTION - Eye Exam Eye Exam: EOMI, PERRL - ENT Exam ENT Exam: Mucous Membranes Moist (POOR ORAL HYGIENE. BAD TEETH.UPPER AND LOWER BOTH.) - Neck Exam Neck Exam: Normal Inspection. absent: Meningismus - Respiratory Exam Respiratory Exam: Prolonged Expiratory Phase - Cardiovascular Exam Cardiovascular Exam: REGULAR RHYTHM, +S1, +S2 - GI/Abdominal Exam GI & Abdominal Exam: Soft, Normal Bowel Sounds - Extremities Exam Extremities Exam: Normal Capillary Refill. absent: Calf Tenderness, Pedal Edema - Neurological Exam Neurological Exam: Awake, CN II-XII Intact, Normal Gait, Oriented x3, Reflexes Normal - Psychiatric Exam Psychiatric exam: Normal Mood - Skin Skin Exam: Normal Color, Warm Assessment and Plan (1) Sinusitis, acute maxillary Assessment & Plan: ON iv ZOSYN 4.5 G EVERY 8 HOURLY .06/13/17. CONTINUE iv VANCOMYCIN 1 G EVERY 12 HOURLY FOR STAPH AND MRSA COVERAGE.12/8/17 CONTINUE iv CLEOCIN 600 MG iv PIGGYBACK EVERY 6 HOURLY 06/13/17. Vanco trough 9.7 /. 23.4 peak low iNCREASE vANCO DOSE TO 1150 MILLIGRAMS EVERY 12 HOURLY.06/17/17. F/U VANCO TROUGH LEVEL PRIOR TO FOURTH DOSE AND MAINTAIN BETWEEN 10 AND 20. FOLLOW-UP RENAL FUNCTIONS CLOSELY. CASE DISCUSSED WITH BALL MILL MIXER MR. Johnson PATIENT FOR MRI /BONE SCAN OF THE SINUSES- PENDING RESULTS. Status: Acute (2) Abnormal CT scan, sinus Status: Acute (3) Dental abscess Assessment & Plan: PATIENT HAS MULTIPLE CARIOUS TEETH/POOR ORAL HYGIENE. sOURCE OF SINUSITIS MOST LIKELY ODONTOGENIC SOURCE. PATIENT ALSO HAS HISTORY OF NASAL POLYPOSIS WITH MULTIPLE SURGERIES IN THE PAST. AWAIT mri AND BONE SCAN REPORT.. PATIENT WILL NEED TO FOLLOW-UP OPD WITH MAXILLOFACIAL SURGERY Status: Acute (4) Hypertension Status: Acute (5) Chronic obstructive lung disease Assessment & Plan: PER PULMONARY PULMONARY TOILET. Status: Acute
[2017-06-18] MEDS: Tiotropium 18 mcg Cap For Inhalation INH SCH (13:09)
[2017-06-18] MEDS: Fluticasone-Salmeterol 250-50mcg Diskus INH SCH ×2 (13:09→19:31)
--- NOTE | 2017-06-18 16:33 | MRI ---
PROCEDURE: MRI OF THE BRAIN AND SINUSES WITHOUT CONTRAST HISTORY: r/o osteo COMPARISON: CT sinuses without contrast from 06/13/2017 TECHNIQUE: Multiplanar, multisequence MR images of the brain and orbits were obtained without contrast enhancement. FINDINGS: ORBITS: Globes, extraocular muscles, optic nerves and retrobulbar fat are unremarkable. No intraorbital mass or infectious/inflammatory changes. PERIORBITAL SPACE: Unremarkable. SINUSES: Again seen is an atelectatic right maxillary sinus and inferior bowing of the right orbital floor as well as lateral bowing of the medial wall of the maxillary sinus. There is also partial destruction of the inferior aspect of the medial wall of the maxillary sinus. There is mild circumferential mucosal thickening in the right maxillary sinus. There is also mild mucosal thickening in the remaining paranasal sinuses. The right inferior turbinate is not visualized. BRAIN: There is no mass, mass effect or abnormal extra-axial fluid collection. The midline sagittal structures are normal. There is mild age-related global parenchymal volume loss and proportionate enlargement of the ventricles and cortical sulci. There are normal signal voids in the larger intracranial arteries. OTHER FINDINGS: There is asymmetric increased T2 signal in the right livestock feeder muscles. IMPRESSION: 1. Atelectatic right maxillary sinus syndrome. 2. Edema in the right livestock feeder space is nonspecific and myositis cannot be excluded. 3. Absent right inferior turbinate and inferior aspect of the medial maxillary wall, although findings could be related to infectious process suggests chronic osteomyelitis, correlation with surgical history is also advised.
--- NOTE | 2017-06-18 16:45 | NM ---
PROCEDURE: Three-phase bone scan HISTORY: Acute maxillary sinusitis with abnormal low maxillofacial CT scan COMPARISON: 06/13/2017 CT maxillofacial bones without contrast Summary of findings on the comparison examination: Acute sinusitis, multiple maxillary periapical dental abscess ease. 06/18/2017 MRI orbits and face. Summary of findings on the comparison examination: Edema in the right bobbin winder space. Atelectatic right maxillary sinus syndrome. TECHNIQUE: Following administration of 20.1 miCu of Tc MDP multiplanar whole body images were obtained. FINDINGS: Flow component: Symmetrical flow to the orbits and facial regions bilaterally Blood pool component: Increased accumulation of radionuclide soft tissues right facial, periorbital and infraorbital regions. Delayed images at 3:00: Unremarkable Other findings: None. IMPRESSION: Three-phase bone scan, scintigraphic findings consistent with cellulitis (identified with greater clarity on recent CT and MRI examinations) without an acute osseous component specifically there are no findings to suggest acute osteomyelitis.
[2017-06-18 16:51] LABS: TSI <89 % baseline (<140)
--- NOTE | 2017-06-18 19:15 | PN ---
ENDOCRINOLOGY FOLLOWUP NOTE LOCATION: In room 659. SUBJECTIVE: This is a 62-year-old male with recent acute maxillary sinusitis and underlying osteomyelitis, currently being followed closely by infectious disease with ongoing IV antibiotic management given and is also being followed closely for metabolic management for recent evaluation of subclinical hyperthyroidism. He is tolerating the Tapazole medication as given and the latest thyroid study showed a T4 of 10.7 with a TSH of 0.54 and a free T4 of 1.35, all of which have improved accordingly since admission. His latest chemistry shows a BUN of 15, sodium 137, potassium 3.8, chloride 100, CO2 of 33, glucose 92, creatinine 0.8. PLAN: So, at this time, we will continue the Tapazole given as a modified dose of 10 mg p.o. b.i.d. after meals as ordered. We will titrate incrementally as indicated to optimize metabolic control. We will follow this. Riri Yoon MD
--- NOTE | 2017-06-18 19:40 | CP.PCM.PN ---
Subjective - Date & Time of Evaluation Date of Evaluation: 06/18/17 Time of Evaluation: 10:00 - Subjective Subjective: clinically same Objective - Vital Signs/Intake and Output Vital Signs (last 24 hours): Temp Pulse Resp BP Pulse Ox 97.3 F L 103 H 18 153/92 H 95 06/18/17 16:00 06/18/17 17:13 06/18/17 16:00 06/18/17 17:13 06/18/17 16:00 - Medications Medications: Current Medications Albuterol/Ipratropium (Duoneb 3 Mg/0.5 Mg (3 Ml) Ud) 3 ml INH RQ6 [facility] Last Admin: 06/18/17 19:30 Dose: 3 ml Enoxaparin Sodium (Lovenox) 40 mg SC DAILY [facility] Last Admin: 06/18/17 10:31 Dose: 40 mg Furosemide (Lasix) 40 mg IVP DAILY [facility] Last Admin: 06/18/17 10:29 Dose: 40 mg Clindamycin Phosphate (Cleocin In Normal Saline) 600 mg in 50 mls @ 100 mls/hr IVPB Q6H [facility] Last Admin: 06/18/17 19:09 Dose: 100 mls/hr Piperacillin Sod/Tazobactam Sod (Zosyn 4.5 Gm Iv Premix) 4.5 gm in 100 mls @ 100 mls/hr IVPB Q8H [facility] Last Admin: 06/18/17 17:08 Dose: 100 mls/hr Vancomycin HCl 1,150 mg/ (Sodium Chloride) 250 mls @ 100 mls/hr IVPB Q12H [facility] Last Admin: 06/18/17 08:30 Dose: 100 mls/hr Lactobacillus Acidophilus (Bacid Acidophilus) 1 cap PO BID [facility] Last Admin: 06/18/17 17:07 Dose: 1 cap Losartan Potassium (Cozaar) 50 mg PO DAILY [facility] Last Admin: 06/18/17 10:30 Dose: 50 mg Methimazole (Tapazole) 10 mg PO BID [facility] Last Admin: 06/18/17 17:06 Dose: 10 mg Metoprolol Tartrate (Lopressor) 12.5 mg PO BID [facility] Last Admin: 06/18/17 17:06 Dose: 12.5 mg Montelukast Sodium (Singulair) 10 mg PO HS [facility] Last Admin: 06/17/17 21:37 Dose: 10 mg Oxycodone/Acetaminophen (Percocet 5/325 Mg Tab) 1 tab PO Q6H PRN PRN Reason: Pain, moderate (4-7) Stop: 06/20/17 02:29 Last Admin: 06/18/17 17:07 Dose: 1 tab Pantoprazole Sodium (Protonix Inj) 40 mg IVP DAILY [facility] Last Admin: 06/18/17 10:29 Dose: 40 mg Fluticasone/Salmeterol (Advair Diskus 250/50) 1 puff INH RQ12 [facility] Last Admin: 06/18/17 19:31 Dose: Not Given Tiotropium [place] (Spiriva) 18 mcg INH RQ24 [facility] Last Admin: 06/18/17 13:09 Dose: Not Given - Labs Labs: 06/17/17 14:22 06/17/17 06:18 PT 15.2 SECONDS (9.7-12.2) H 06/13/17 13:18 INR 1.3 06/13/17 13:18 APTT 35 SECONDS (21-34) H 06/13/17 13:18 - Constitutional Appears: Well - Head Exam Head Exam: ATRAUMATIC, NORMAL INSPECTION, NORMOCEPHALIC - Eye Exam Eye Exam: EOMI, Normal appearance, PERRL Pupil Exam: NORMAL ACCOMODATION, PERRL - ENT Exam ENT Exam: Mucous Membranes Moist, Normal Exam - Neck Exam Neck Exam: Full ROM, Normal Inspection. absent: Lymphadenopathy - Respiratory Exam Respiratory Exam: Decreased Breath Sounds - Cardiovascular Exam Cardiovascular Exam: REGULAR RHYTHM, +S1, +S2 - GI/Abdominal Exam GI & Abdominal Exam: Soft, Diminished Bowel Sounds - Rectal Exam Rectal Exam: Deferred
[2017-06-19] MEDS: Clindamycin 600mg/50ml NS 600 MG/50 ML BAG IVPB SCH ×2 (01:09→08:27)
[2017-06-19] MEDS: Piperacill/Tazo 4.5gm in Dex 4.5 GM/100 ML BAG IVPB SCH ×2 (01:10→10:39)
[2017-06-19] MEDS: Albuterol-Ipratrop 3 mg / 0.5 (3 ml) UD INH SCH ×3 (01:13→13:30)
[2017-06-19] MEDS: Oxycodone/Acetaminophen 5/325 mg Tab PO PRN ×2 (01:21→11:36)
[2017-06-19 02:09] VITALS: RESP 20; TEMP 98.3
[2017-06-19 08:55] VITALS: PULSE 109; O2SAT 94
[2017-06-19] MEDS ORDERED: Metoprolol 1 mg/ml Inj IVP ONE (09:15)
--- NOTE | 2017-06-19 09:15 | CP.PCM.PN ---
Subjective - Date & Time of Evaluation Date of Evaluation: 06/19/17 Time of Evaluation: 09:16 - Subjective Subjective: PGY2 Medicine Note for Dr. Grupo Cross; all management as per Dr. Grupo Cross This patient was seen and examined at bedside this AM; denies any symptoms; states that facial pain is much improved; denies fevers/chills, HAND[place], CP, abdominal pain, N/V/D, dysuria/freq/urg, or lower extremity pain/swelling. upon reassessment at 11:00am the patient wishes to sign out AMA; he was warned of the risks which include permanent disfigurement, facial pain permanently, inability to swallow, sepsis, . the patient understands risks of not receiving further treatment. AMA form signed and in chart. Will remove picc line once Abx are done running from 10:00am. Objective - Vital Signs/Intake and Output Vital Signs (last 24 hours): Temp Pulse Resp BP Pulse Ox 98.3 F 109 H 20 169/95 H 94 L 06/19/17 07:10 06/19/17 07:10 06/19/17 07:10 06/19/17 07:10 06/19/17 07:10 Intake and Output: 06/19/17 06/19/17 06:59 18:59 Intake Total 930 Balance 930 - Medications Medications: Current Medications Albuterol/Ipratropium (Duoneb 3 Mg/0.5 Mg (3 Ml) Ud) 3 ml INH RQ6 ANOOP Last Admin: 06/19/17 07:40 Dose: 3 ml Enoxaparin Sodium (Lovenox) 40 mg SC DAILY [facility] Last Admin: 06/18/17 10:31 Dose: 40 mg Furosemide (Lasix) 40 mg IVP DAILY [facility] Last Admin: 06/18/17 10:29 Dose: 40 mg Clindamycin Phosphate (Cleocin In Normal Saline) 600 mg in 50 mls @ 100 mls/hr IVPB Q6H [facility] Last Admin: 06/19/17 08:27 Dose: 100 mls/hr Piperacillin Sod/Tazobactam Sod (Zosyn 4.5 Gm Iv Premix) 4.5 gm in 100 mls @ 100 mls/hr IVPB Q8H [facility] Last Admin: 06/19/17 01:10 Dose: 100 mls/hr Vancomycin HCl 1,150 mg/ (Sodium Chloride) 250 mls @ 100 mls/hr IVPB Q12H [facility] Last Admin: 06/19/17 08:28 Dose: 100 mls/hr Lactobacillus Acidophilus (Bacid Acidophilus) 1 cap PO BID [facility] Last Admin: 06/18/17 17:07 Dose: 1 cap Losartan Potassium (Cozaar) 50 mg PO DAILY [facility] Last Admin: 06/18/17 10:30 Dose: 50 mg Methimazole (Tapazole) 10 mg PO BID [facility] Last Admin: 06/18/17 17:06 Dose: 10 mg Metoprolol Tartrate (Lopressor) 12.5 mg PO BID [facility] Last Admin: 06/18/17 17:06 Dose: 12.5 mg Montelukast Sodium (Singulair) 10 mg PO HS [facility] Last Admin: 06/18/17 21:20 Dose: 10 mg Oxycodone/Acetaminophen (Percocet 5/325 Mg Tab) 1 tab PO Q6H PRN PRN Reason: Pain, moderate (4-7) Stop: 06/20/17 02:29 Last Admin: 06/19/17 01:21 Dose: 1 tab Pantoprazole Sodium (Protonix Inj) 40 mg IVP DAILY [facility] Last Admin: 06/18/17 10:29 Dose: 40 mg Fluticasone/Salmeterol (Advair Diskus 250/50) 1 puff INH RQ12 [facility] Last Admin: 06/18/17 19:31 Dose: Not Given Tiotropium [place] (Spiriva) 18 mcg INH RQ24 [facility] Last Admin: 06/18/17 13:09 Dose: Not Given - Labs Labs: 06/17/17 14:22 06/17/17 06:18 PT 15.2 SECONDS (9.7-12.2) H 06/13/17 13:18 INR 1.3 06/13/17 13:18 APTT 35 SECONDS (21-34) H 06/13/17 13:18 - Constitutional Appears: Non-toxic - Head Exam Head Exam: ATRAUMATIC - Eye Exam Eye Exam: EOMI Pupil Exam: PERRL - ENT Exam ENT Exam: Mucous Membranes Moist - Neck Exam Neck Exam: Full ROM. absent: Lymphadenopathy - Respiratory Exam Respiratory Exam: Clear to Ausculation Bilateral, NORMAL BREATHING PATTERN. absent: Rales, Rhonchi, Wheezes - Cardiovascular Exam Cardiovascular Exam: REGULAR RHYTHM, +S1, +S2 - GI/Abdominal Exam GI & Abdominal Exam: Soft, Normal Bowel Sounds - Extremities Exam Extremities Exam: Full ROM. absent: Calf Tenderness - Back Exam Back Exam: NORMAL INSPECTION. absent: CVA tenderness (L), CVA tenderness (R) - Neurological Exam Neurological Exam: Alert, Awake, Oriented x3 - Psychiatric Exam Psychiatric exam: Normal Affect - Skin Skin Exam: Warm Assessment and Plan - Assessment and Plan (Free Text) Assessment: Acute on chronic osteomyelitis - right maxilla Admit to med surg, transferred tele due to tachycardia ([facility] 06/13) Right sided facial pain for ~ one month Maxillofacial CT (06/13/17): Right maxillary atelectatics sinus syndrome w concerns of acute/chronic osteomyelitis in right maxilla. Aerosolized secretions in right maxillary sinus may represent superimposed acute sinusitis in appropriate clinical setting. multiple periapical dental abscesses (see full report). Bone scan and MRI do not show any acute osteomyelitis or bone infection component; however did find maxillary sinus syndrome; appreciate Dr. Kohler (ENT ) recs ID Dr. Almendarez, help appreciated Zosyn 4.5gm IV Q8H (start 06/13/17) Vancomycin 1gram Q12H (start 06/13/17) Cleocin 600mg IVPB Q6H (start 06/13/17) - one dose Ceftriaxone in ED (06/12/17) Lactobacillus Acidophillus 1 cap PO BID ENT consult, Dr. Kohler - IV ABX per ID Blood cultures negative x 5 days Strep culture negative Hyperthyroidism; resolving TSH improving over course Dr. 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 Aerosolized secretions in right maxillary sinus may represent superimposed acute sinusitis in appropriate clinical setting. multiple periapical dental abscesses (see full report). 06/18: Spoke with [employer]END[employer] Anna Marie. He spoke with Dr. Kohler who stated that he does not believe pt has dental abscesses. 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 Francisco, Pulm peoplesoft consultant - continue nebs, antibiotics for sinusitis, pulm toilet - Consider PFT as OPDX - Singulair 10mg PO HS - Advair 250/50 1 puff INH Q12H [facility] - Spiriva 18mcg INH Q24H [facility]OOP HTN Well controlled Losartan 50mg PO Daily Metoprolol 12.5 mg PO BID Severe pulm HTN CXR (06/13/17): marked cardiomegaly. Pulm venous congestion. Mild lateral pleural thickening/fluid on right (see full report) - repeat 06/18/17: No change in pulm vascular congestion, intersitial edema, and severe cardiomegaly (see full report) ECHO (06/14/17): suboptimal with poor acoustic windows. LV systolic FXN normal. EF 60-65%. Unable to comment on wall motion due to suboptimal study. Mitral regurgitation present. Severe pulmonary hypertension > 60mmHG (see full report) Lasix 40mg IV Daily Elevated BG Transisent increase blood sugar over course - A1C: 5.1% Persistent Tachycardia; Resolved [facility] on 06/13/17 - Low TSH - hyperthyroidism most likely etiology (see above for plan) - Dr. Yoon consulted (Endo), Dr. Carson consulted for Cardio - CT angio negative for PE, D-dimer negative Prophylaxis Lovenox 40mg SC Daily Protonix 40mg IV daily [facility] Dispo: no osteonecrosis seen, no overt osteomyelitis on MRI or bone scan; cellulitis component more likely R Maxillary Sinus syndrome; f/u ENT results will need to f/u endocrinology for hyperthryoidism and TSH checks will need pft as per pulm All medical management by Dr. Cross
[2017-06-19] MEDS: Enoxaparin 40 mg Syringe SC SCH (10:24)
[2017-06-19 10:25] VITALS: BP 162/94
[2017-06-19] MEDS: Lactobacillus Acidophilus 500 MU Cap PO SCH (10:37)
--- NOTE | 2017-06-19 12:28 | CP.PCM.PN ---
Subjective - Date & Time of Evaluation Date of Evaluation: 06/19/17 Time of Evaluation: 12:26 - Subjective Subjective: bone scan does not reveal osteomyelitis. patient does have sinusitis. ok to d/ c patient home from ent point on augmentin for 2 weeks and follow up as an outpatient. Patient needs to be evaluated by dental for any problems with teeth Objective - Vital Signs/Intake and Output Vital Signs (last 24 hours): Temp Pulse Resp BP Pulse Ox 98.3 F 109 H 20 162/94 H 94 L 06/19/17 07:10 06/19/17 07:10 06/19/17 07:10 06/19/17 10:25 06/19/17 07:10 Intake and Output: 06/19/17 06/19/17 06:59 18:59 Intake Total 930 Balance 930 - Medications Medications: Current Medications Albuterol/Ipratropium (Duoneb 3 Mg/0.5 Mg (3 Ml) Ud) 3 ml INH RQ6 [facility] Last Admin: 06/19/17 07:40 Dose: 3 ml Enoxaparin Sodium (Lovenox) 40 mg SC DAILY [facility] Last Admin: 06/19/17 10:24 Dose: 40 mg Furosemide (Lasix) 40 mg IVP DAILY [facility] Last Admin: 06/19/17 10:25 Dose: 40 mg Clindamycin Phosphate (Cleocin In Normal Saline) 600 mg in 50 mls @ 100 mls/hr IVPB Q6H [facility] Last Admin: 06/19/17 08:27 Dose: 100 mls/hr Piperacillin Sod/Tazobactam Sod (Zosyn 4.5 Gm Iv Premix) 4.5 gm in 100 mls @ 100 mls/hr IVPB Q8H [facility] Last Admin: 06/19/17 10:39 Dose: 100 mls/hr Vancomycin HCl 1,150 mg/ (Sodium Chloride) 250 mls @ 100 mls/hr IVPB Q12H [facility] Last Admin: 06/19/17 08:28 Dose: 100 mls/hr Lactobacillus Acidophilus (Bacid Acidophilus) 1 cap PO BID [facility] Last Admin: 06/19/17 10:37 Dose: 1 cap Losartan Potassium (Cozaar) 50 mg PO DAILY [facility] Last Admin: 06/19/17 10:24 Dose: 50 mg Methimazole (Tapazole) 10 mg PO BID [facility] Last Admin: 06/19/17 10:25 Dose: 10 mg Metoprolol Tartrate (Lopressor) 25 mg PO BID [facility] Last Admin: 06/19/17 10:25 Dose: 25 mg Montelukast Sodium (Singulair) 10 mg PO HS [facility] Last Admin: 06/18/17 21:20 Dose: 10 mg Oxycodone/Acetaminophen (Percocet 5/325 Mg Tab) 1 tab PO Q6H PRN PRN Reason: Pain, moderate (4-7) Stop: 06/20/17 02:29 Last Admin: 06/19/17 11:36 Dose: 1 tab Pantoprazole Sodium (Protonix Inj) 40 mg IVP DAILY [facility] Last Admin: 06/19/17 10:24 Dose: 40 mg Fluticasone/Salmeterol (Advair Diskus 250/50) 1 puff INH RQ12 [facility] Last Admin: 06/18/17 19:31 Dose: Not Given Tiotropium [place] (Spiriva) 18 mcg INH RQ24 [facility] Last Admin: 06/18/17 13:09 Dose: Not Given - Labs Labs: 06/17/17 14:22 06/17/17 06:18 PT 15.2 SECONDS (9.7-12.2) H 06/13/17 13:18 INR 1.3 06/13/17 13:18 APTT 35 SECONDS (21-34) H 06/13/17 13:18
[2017-06-19] MEDS: Fluticasone-Salmeterol 250-50mcg Diskus INH SCH (13:30)
[2017-06-19] MEDS: Tiotropium 18 mcg Cap For Inhalation INH SCH (13:31)
--- NOTE | 2017-06-20 09:16 | PN ---
DATE: ENDOCRINOLOGY FOLLOWUP NOTE LOCATION: Room 659. SUBJECTIVE: This is a 62-year-old male with recent admission for acute maxillary sinusitis and osteomyelitis and has been transferred to a subacute facility for ongoing IV antibiotics and has now also been followed closely for metabolic management. He also had overt hyperthyroidism as noted thereof and the latest chemistries showed a BUN of 15, sodium 137, potassium 3.8, chloride 100, CO2 of 33, glucose 92, and creatinine 0.8. His latest thyroid studies showed a T4 of 10.7 with a free T4 of 1.35 and a TSH of 0.54 which is improving as expected thereof. So, for now, we will continue the same Tapazole medications given as 10 mg b.i.d. after meals as ordered. We will highly recommend a repeat T4 and TSH in 3 to 4 weeks at the [facility] to adjust his dose regimen accordingly. Riri Yoon MD
== END 2017-06-19 14:23 | disposition left against medical advice (07) | DRG 68 ==
LOC: C.ER 09:07 → C.9E 12:46 → C.3T 13:27 → C.6T 18:01
PROVIDERS: ADMIT Internal Medicine Nephrology; ATTEND Internal Medicine Nephrology
PROC: 02HV33Z Insertion of Infusion Device into Superior Vena Cava, Percutaneous Approach (ICD-10-PCS; principal; 2017-06-16)
PROC: B548ZZA Ultrasonography of Superior Vena Cava, Guidance (ICD-10-PCS; 2017-06-16)
DX: J01.00 Acute maxillary sinusitis, unspecified (principal); I11.0 Hypertensive heart disease with heart failure; I27.20 Pulmonary hypertension, unspecified; I50.9 Heart failure, unspecified; E87.6 Hypokalemia; J44.9 Chronic obstructive pulmonary disease, unspecified; M27.2 Inflammatory conditions of jaws; F17.210 Nicotine dependence, cigarettes, uncomplicated; K04.7 Periapical abscess without sinus; E05.00 Thyrotoxicosis with diffuse goiter without thyrotoxic crisis or storm; E78.5 Hyperlipidemia, unspecified; I25.10 Atherosclerotic heart disease of native coronary artery without angina pectoris; I34.0 Nonrheumatic mitral (valve) insufficiency; Z87.01 Personal history of pneumonia (recurrent); J32.0 Chronic maxillary sinusitis; M87.88 Other osteonecrosis, other site; R00.0 Tachycardia, unspecified